=== PATIENT | female | born 1965 | race Caucasian/White ===

== ENCOUNTER 2018-07-17 13:45 | Inpatient (IN) | payer SELFPAY ==
[~2018-07-17] VITALS: Ht 170.2 cm; Wt 73.5 kg
[~2018-07-17 13:45] MED LIST: HALDOL; SERT50TA14; TRILEPTAL; ZYPREXA
[2018-07-17] MEDS ORDERED: IV NORMAL SALINE 1000 ML BAG IV ONE (14:00)
--- NOTE | 2018-07-17 14:00 | NUR ---
called poison control for consult. pt care would be supportive, security monitor and clos e observation for 6 hrs, longer if sympthomatic, watch for tachycardia, drowsiness, and q-t elongation on monitor.md notified. called treating and pumping supervisor for one to one sitter.
--- NOTE | 2018-07-17 14:20 | NUR ---
apple juice provided for pt. per md gambino
--- NOTE | 2018-07-17 14:23 | NUR ---
nathanael lucas, pt brother called and provided his contact info.[phone]. also pt older brother,jaxon lucas [phone]. pt was notified about her brother calling and pt consented that the brother to be updated about pt condition, including lab and images result, if he calls.
[2018-07-17 14:28] LABS: BASOPHILS % (AUTO) 0.7 % (0.0-2.0); EOSINOPHILS # (AUTO) 0.1 K/uL (0.0-0.7); EOSINOPHILS % (AUTO) 0.9 % (0.0-7.0); HEMATOCRIT 47.1 % (31.2-41.9); LYMPHOCYTES # (AUTO) 1.7 K/uL (20.0-40.0); LYMPHOCYTES % (AUTO) 26.2 % (20.5-51.5); MEAN CORPUSCULAR HEMOGLOBIN 33.5 uug (24.7-32.8); MEAN CORPUSCULAR HGB CONC 34 g/dL (32.3-35.6); MEAN CORPUSCULAR VOLUME 98.3 fL (75.5-95.3); MONOCYTES # (AUTO) 0.6 K/uL (2.0-10.0); MONOCYTES % (AUTO) 9.7 % (0.0-11.0); NEUTROPHILS % (AUTO) 62.5 % (38.5-71.5); PLATELET COUNT (AUTO) 254 K/uL (179-408); RED BLOOD CELL COUNT(AUTO) 4.79 MIL/uL (3.63-4.92); WHITE BLOOD COUNT (AUTO) 6.4 K/uL (3.8-11.8)
[2018-07-17 14:39] LABS: CARBON DIOXIDE 21 mmol/L (21-32); CHLORIDE 102 mmol/L (98-107); GLUCOSE 69 mg/dL (74-106); POTASSIUM 3.3 mmol/L (3.5-5.1); UREA NITROGEN, BLOOD 9 mg/dL (7-18)
[2018-07-17 14:44] LABS: ALANINE AMINOTRANSFERASE 18 U/L (14-59); ALKALINE PHOSPHATASE 86 U/L (50-136); ASPARTATE AMINOTRANSFERASE 6 U/L (15-37); BILIRUBIN,DIRECT 0.1 mg/dL (0.0-0.2); BILIRUBIN,TOTAL 0.2 mg/dL (0.2-1.0); TOTAL PROTEIN, SERUM 8.1 g/dL (6.4-8.2)
[2018-07-17 14:45] LABS: ETHANOL 96 MG/DL (0-0)
--- NOTE | 2018-07-17 14:45 | NUR ---
pt awake, calm, deneis any pain or distress at this time. vss.
--- NOTE | 2018-07-17 15:08 | NUR ---
pt voided 800 ml in the bedside commode.urine sent
[2018-07-17 15:22] LABS: *BILIRUBIN,URIN NEGATIVE (NEGATIVE); *BLOOD, URINE 1+ (NEGATIVE); *CLARITY,URINE CLEAR (CLEAR); *COLOR,URINE YELLOW (YELLOW); *KETONES,URINE NEGATIVE (NEGATIVE); *UROBILINOGEN,URINE 0.2 E.U./dl (NORMAL); LEUKOCYTE ESTERASE ,URINE NEGATIVE (NEGATIVE); NITRITE, URINE NEGATIVE (NEGATIVE); PH,URINE 5.5 (5.0-8.0); UGLUCOSE NEGATIVE (NEGATIVE)
--- NOTE | 2018-07-17 15:30 | NUR ---
abbe at bedside for onr to one sitter.
[2018-07-17 15:34] LABS: *AMPHETAMINE, URINE NEGATIVE (NEGATIVE); *BARBITURATE, URINE NEGATIVE (NEGATIVE); *CANNABINOID, URINE NEGATIVE (NEGATIVE); *COCCAINE, URINE NEGATIVE (NEGATIVE); *OPIATE, URINE NEGATIVE (NEGATIVE); *PHENCYCLIDINE SCREEN,URINE NEGATIVE (NEGATIVE)
--- NOTE | 2018-07-17 16:59 | NUR ---
pt awake and calm, pt tho ny pain or distress at this time.
[2018-07-17] MEDS ORDERED: ZIPR20CA2 PO (17:20)
--- NOTE | 2018-07-17 17:30 | NUR ---
HOSPITAL TRAY OFFERED TO PT. PT REFUSED, REQUESTED ONLY APPLE JUICE, PROVIDED.
--- NOTE | 2018-07-17 17:53 | NUR ---
PT RESTING AROUSABLE. PT MEDICALLY CLEARED.
[2018-07-17 18:20] LABS: BACTERIA,URINE FEW /HPF (NONE SEEN); SQUAMOUS EPITHELIAL CELL,UR FEW /HPF (NONE SEEN); WBC,URINE 0-3 /HPF (0-3)
--- NOTE | 2018-07-17 18:31 | NUR ---
CURTIS MALDONADO AT BEDSIDE FOR PSYCH EVAL.
[2018-07-17 18:37] LABS: CREATINE KINASE, TOTAL 39 U/L (26-192)
--- NOTE | 2018-07-17 19:05 | NUR ---
ASSUMED CARE OF PATIENT. PENDING PSYCH EVAL. NO ACUTE DISTRESS NOTED
[2018-07-17 19:32] LABS: ACETAMINOPHEN < 2.0 ug/mL (10-30)
--- NOTE | 2018-07-17 20:32 | NUR ---
PANEL CALL PLACED AT THIS TIME. PENDING CALL BACK FROM DR LUGO
[2018-07-17] MEDS ORDERED: IBUPROFEN 400 MG TABLET ONE (20:40)
[2018-07-17] MEDS ORDERED: IBUPROFEN 400 MG TABLET PO ONE (20:45)
--- NOTE | 2018-07-17 20:58 | NUR ---
XRAY AT BEDSIDE. PATIENT GIVEN JUICE/FOOD AT THIS TIME.
--- NOTE | 2018-07-17 21:04 | NUR ---
Pt. admitted to tELE , under care of Belongs List completed
--- NOTE | 2018-07-17 21:06 | NUR ---
REPORT GIVEN TO JOHN CHEW ON TELEMETRY
--- NOTE | 2018-07-17 21:30 | NUR ---
Received patient awake, alert and oriented x 4. Patient is not in any form of distress. Transferred patient safely from [facility] to [facility] bed, noted patient has a sitter at bedside due to history of suicidal ideation. She is on room air and has an IV access on her right antecubital vein,20G to saline lock. No complaints at the moment but wishes to speak to a family member. Patient oriented to unit and made comfortable.Bed in low position, locked, side rails up for safety. Will continue to monitor.
--- NOTE | 2018-07-17 22:00 | NUR ---
Received a call from Nga from Poison Control who asked for a repeat check of patient's salicylate level and chemistry. Contacted admitting physician, Dr. Peguero regarding Poison Control's call and orders.
[2018-07-17 22:13] VITALS: BP 97/63
[2018-07-17] MEDS ORDERED: MAGNESIUM HYDROXIDE 30 ML LIQUID UDC PO PRN (23:30)
[2018-07-17] MEDS ORDERED: LORAZEPAM 2 MG/1 ML VIAL IV PRN (23:30)
[2018-07-17] MEDS ORDERED: ONDANSETRON 4 MG/2 ML VIAL IV PRN (23:30)
[2018-07-17] MEDS ORDERED: ACETAMINOPHEN 325 MG TABLET PO PRN (23:30)
[2018-07-17] MEDS: POTASSIUM CHLORIDE 20 MEQ in IV NS 1000 ML 1,000 ML IV PRN (23:59)
[2018-07-18 00:08] LABS: BILIRUBIN,TOTAL 0.4 mg/dL (0.2-1.0); CREATININE 0.8 mg/dL (0.6-1.3); POTASSIUM 4.3 mmol/L (3.5-5.1); TOTAL PROTEIN, SERUM 6.4 g/dL (6.4-8.2)
[2018-07-18 00:18] VITALS: BP 103/69
[2018-07-18 05:29] VITALS: BP 105/63
--- NOTE | 2018-07-18 05:54 | NUR ---
Patient slept well throughout the night. Not in any form of distress. No complaints made. Still with sitter at bedside for safety. Noted with blood draw again this morning with Salicylate and acetaminophen levels as ordered and requested by poison control. No other untoward events noted.
[2018-07-18 06:36] LABS: BASOPHILS % (AUTO) 0.8 % (0.0-2.0); EOSINOPHILS # (AUTO) 0.1 K/uL (0.0-0.7); EOSINOPHILS % (AUTO) 2.2 % (0.0-7.0); HEMATOCRIT 40.6 % (31.2-41.9); HEMOGLOBIN 13.7 g/dL (10.9-14.3); LYMPHOCYTES % (AUTO) 32.4 % (20.5-51.5); MEAN CORPUSCULAR HEMOGLOBIN 33.3 uug (24.7-32.8); MEAN CORPUSCULAR HGB CONC 34 g/dL (32.3-35.6); MEAN CORPUSCULAR VOLUME 98.5 fL (75.5-95.3); MONOCYTES # (AUTO) 0.6 K/uL (2.0-10.0); MONOCYTES % (AUTO) 9.8 % (0.0-11.0); NEUTROPHILS # (AUTO) 3.4 K/uL (1.8-8.9); NEUTROPHILS % (AUTO) 54.8 % (38.5-71.5); PLATELET COUNT (AUTO) 236 K/uL (179-408); RED BLOOD CELL COUNT(AUTO) 4.12 MIL/uL (3.63-4.92); WHITE BLOOD COUNT (AUTO) 6.3 K/uL (3.8-11.8)
[2018-07-18] MEDS ORDERED: PANTOPRAZOLE SODIUM 40 MG TABLET.DR PO SCH (07:00)
[2018-07-18 07:01] LABS: THYROID STIMULATING HORMONE 1.003 mIU/mL (0.358-3.740)
[2018-07-18 07:24] LABS: ALANINE AMINOTRANSFERASE 19 U/L (14-59); ALKALINE PHOSPHATASE 70 U/L (50-136); ASPARTATE AMINOTRANSFERASE 8 U/L (15-37); BILIRUBIN,TOTAL 0.3 mg/dL (0.2-1.0); CARBON DIOXIDE 23 mmol/L (21-32); CHLORIDE 109 mmol/L (98-107); CREATININE 0.9 mg/dL (0.6-1.3); GLUCOSE 84 mg/dL (74-106); MAGNESIUM 2.2 mg/dL (1.8-2.4); PHOSPHOROUS 2.5 mg/dL (2.5-4.9); POTASSIUM 4.2 mmol/L (3.5-5.1); TOTAL PROTEIN, SERUM 6.4 g/dL (6.4-8.2); UREA NITROGEN, BLOOD 7 mg/dL (7-18)
[2018-07-18 07:56] LABS: ACETAMINOPHEN < 2.0 ug/mL (10-30)
[2018-07-18 09:59] VITALS: BP 116/74
[2018-07-18] MEDS: POTASSIUM CHLORIDE 20 MEQ in IV NS 1000 ML 1,000 ML IV PRN (12:07)
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
--- NOTE | 2018-07-18 17:14 | NUR ---
PATIENT IS MEDICALLY CLEARED, CLEARED BY PSYCHIATRY, EDUCATION IS GIVEN FOR MY DISCHARGE WITH HARD COPY PROVIDED TO THE PATIENT PATIENT IS GETTING PICKED UP BY AND HER DAUGHTER
[2018-07-18 17:53] VITALS: BP 120/81
--- NOTE | 2018-07-18 18:07 | NUR ---
PATIENT LEFT THE UNIT WITH AND HER DAUGHTER VS STABLE NO DISTRESS, NO THOUGHTS OF SUICIDE OR PLAN
== END 2018-07-18 18:08 | disposition home or self-care (01) | DRG 918 ==
LOC: ER 13:45 → TELE3 21:19
PROVIDERS: ADMIT Internal Medicine
DX: T43.592A Poisoning by other antipsychotics and neuroleptics, intentional self-harm, initial encounter (principal); F31.60 Bipolar disorder, current episode mixed, unspecified; T51.0X2A Toxic effect of ethanol, intentional self-harm, initial encounter; Y92.012 Bathroom of single-family (private) house as the place of occurrence of the external cause; W18.2XXA Fall in (into) shower or empty bathtub, initial encounter; M47.812 Spondylosis without myelopathy or radiculopathy, cervical region; Y90.4 Blood alcohol level of 80-99 mg/100 ml; E87.6 Hypokalemia; M25.78 Osteophyte, vertebrae; M12.88 Other specific arthropathies, not elsewhere classified, other specified site; Z86.59 Personal history of other mental and behavioral disorders; F25.9 Schizoaffective disorder, unspecified; F10.10 Alcohol abuse, uncomplicated
CPT/HCPCS: 36415; 70450; 71045; 72125; 80307; 83735; 84100; 84443; 85025; 85730; 93005; A4663; G0378; G0480; G0480-TC; J3480; J7030

== ENCOUNTER 2019-08-21 14:47 | Emergency (ER) | payer BC ==
[~2019-08-21] VITALS: Ht 170.2 cm; Wt 62.6 kg
[~2019-08-21 14:47] MED LIST changes: -HALDOL; -SERT50TA14; -TRILEPTAL; +ZIPR20CA2 PO; -ZYPREXA
[2019-08-21] MEDS ORDERED: TDAP DIPH,PERTUSS,TET VAC/PF 0.5 ML DISP.SYRIN IM ONE ×2 (15:00→15:18)
[2019-08-21] MEDS ORDERED: NEOMY/BACITRA/POLYMYXIN B OINT UD PACKET TP ONE ×3 (15:00→17:26)
[2019-08-21] MEDS ORDERED: LURA80TA PO (15:02)
[2019-08-21] MEDS ORDERED: LAMO100T2 PO (15:02)
[2019-08-21] MEDS ORDERED: LITH300T3 PO (15:02)
[2019-08-21] MEDS ORDERED: SODIUM BICARBONATE 4.2 % (NEUT) 5 ML VIAL TP ONE (16:15)
[2019-08-21] MEDS ORDERED: LIDOCAINE HCL 2% 20 ML VIAL TP ONE (16:15)
--- NOTE | 2019-08-21 17:30 | NUR ---
Patient discharged to home in stable condition. Written and verbal after care instructions given. Patient verbalizes understanding of instructions. Stressed follow up or return to ER for worsening s/s.pt walks in steady gait. pt used uber to go home.
[2019-08-21 18:53] VITALS: BP 119/71
== END 2019-08-21 17:30 | disposition home or self-care (01) ==
LOC: ER 14:48
DX: S01.112A Laceration without foreign body of left eyelid and periocular area, initial encounter (principal); V48.4XXA Person boarding or alighting a car injured in noncollision transport accident, initial encounter; Y92.410 Unspecified street and highway as the place of occurrence of the external cause; F25.9 Schizoaffective disorder, unspecified; Z79.899 Other long term (current) drug therapy
CPT/HCPCS: 12013; 90471; 90715; 99283; J3490 ×2; A4217; A4663

== ENCOUNTER 2019-09-04 08:26 | Emergency (ER) | payer BC ==
[~2019-09-04] VITALS: Ht 170.2 cm; Wt 63.5 kg
[~2019-09-04 08:26] MED LIST changes: +LAMO100T2 PO; +LITH300T3 PO; +LURA80TA PO; -ZIPR20CA2 PO
--- NOTE | 2019-09-04 08:45 | NUR ---
PATIENT WAS SEEN BY MD FOR SUTURE REMOVAL. DC AND FOLLOW UP INSTRUCTIONS GIVEN ADN EXPLAINED TO PATIENT BY ...
== END 2019-09-04 08:47 | disposition home or self-care (01) ==
LOC: ER 08:26
DX: S01.112D Laceration without foreign body of left eyelid and periocular area, subsequent encounter (principal); W01.0XXD Fall on same level from slipping, tripping and stumbling without subsequent striking against object, subsequent encounter
CPT/HCPCS: A4663

== ENCOUNTER 2020-04-11 08:37 | Emergency (ER) | payer BC ==
[~2020-04-11] VITALS: Ht 170.2 cm; Wt 54.4 kg
--- NOTE | 2020-04-11 09:12 | NUR ---
Pt c/o pain "up underneath" the right ribcage for days, 8-12/05, does not remember lifting anything, twisting, etc. Pt denies CP, SOB, dizziness, n/v, no other complaints, no distress noted.
[2020-04-11 09:47] LABS: *BILIRUBIN,URIN NEGATIVE (NEGATIVE); *CLARITY,URINE CLEAR (CLEAR); *COLOR,URINE YELLOW (YELLOW); *KETONES,URINE NEGATIVE (NEGATIVE); *UROBILINOGEN,URINE 0.2 E.U./dl (NORMAL); LEUKOCYTE ESTERASE ,URINE TRACE (NEGATIVE); NITRITE, URINE NEGATIVE (NEGATIVE); UGLUCOSE NEGATIVE (NEGATIVE)
[2020-04-11 09:52] LABS: *URINE HCG, QUAL NEG (NEGATIVE)
[2020-04-11 09:54] LABS: CREATININE 0.9 mg/dL (0.6-1.3); POTASSIUM 4.7 mmol/L (3.5-5.1)
[2020-04-11 09:55] LABS: BASOPHILS # (AUTO) 0.1 K/uL (0.0-8.0); BASOPHILS % (AUTO) 1.4 % (0.0-2.0); EOSINOPHILS # (AUTO) 0.2 K/uL (0.0-0.7); EOSINOPHILS % (AUTO) 2.9 % (0.0-7.0); HEMOGLOBIN 14.4 g/dL (10.9-14.3); LYMPHOCYTES # (AUTO) 1.6 K/uL (20.0-40.0); LYMPHOCYTES % (AUTO) 29.2 % (20.5-51.5); MEAN CORPUSCULAR HEMOGLOBIN 32.3 uug (24.7-32.8); MEAN CORPUSCULAR HGB CONC 33 g/dL (32.3-35.6); MEAN CORPUSCULAR VOLUME 98.6 fL (75.5-95.3); MONOCYTES # (AUTO) 0.6 K/uL (2.0-10.0); MONOCYTES % (AUTO) 10.2 % (0.0-11.0); NEUTROPHILS # (AUTO) 3.1 K/uL (1.8-8.9); NEUTROPHILS % (AUTO) 56.3 % (38.5-71.5); PLATELET COUNT (AUTO) 241 K/uL (179-408); RED BLOOD CELL COUNT(AUTO) 4.46 MIL/uL (3.63-4.92); WHITE BLOOD COUNT (AUTO) 5.5 K/uL (3.8-11.8)
[2020-04-11 09:56] LABS: *BLOOD, URINE TRACE (NEGATIVE)
[2020-04-11 10:00] LABS: BILIRUBIN,DIRECT 0.1 mg/dL (0.0-0.2); BILIRUBIN,TOTAL 0.3 mg/dL (0.2-1.0); TOTAL PROTEIN, SERUM 7.3 g/dL (6.4-8.2)
[2020-04-11] MEDS ORDERED: SWABABLE VALVE TRANSFER SET EA MC ONE ×2 (10:09→11:30)
[2020-04-11] MEDS ORDERED: IV NORMAL SALINE 250 ML IV ONE (10:09)
[2020-04-11] MEDS ORDERED: IOHEXOL 300MG/ML 100 ML INFUS..BTL ONE ×2 (10:09→11:29)
--- NOTE | 2020-04-11 11:41 | NUR ---
Taken to CT
--- NOTE | 2020-04-11 12:55 | NUR ---
IV removed. Catheter intact and site benign. Pressure and 4x4 gauze applied to site. No bleeding noted.
--- NOTE | 2020-04-11 12:58 | NUR ---
Patient discharged to home in stable condition. Written and verbal after care instructions given. Patient verbalizes understanding of instructions. Stressed follow up or return to ER for worsening s/s.
[2020-04-11 17:20] LABS: BACTERIA,URINE NONE SEEN /HPF (NONE SEEN); RBC,URINE 0-3 /HPF (0-3); SQUAMOUS EPITHELIAL CELL,UR FEW /HPF (NONE SEEN)
== END 2020-04-11 12:59 | disposition home or self-care (01) ==
LOC: ER 08:39
DX: R10.11 Right upper quadrant pain (principal); S23.41XA Sprain of ribs, initial encounter; X58.XXXA Exposure to other specified factors, initial encounter; Y99.8 Other external cause status; Z71.6 Tobacco abuse counseling; R00.1 Bradycardia, unspecified; F25.0 Schizoaffective disorder, bipolar type; Z79.899 Other long term (current) drug therapy; Z72.0 Tobacco use
CPT/HCPCS: 36415; 71046; 74160; 74177; 76705; 80048; 80076; 80178; 81001; 83690; 84484; 84703; 85025; 93005; 99285; Q9967 ×2; 70030-TC; A4663; J7050

== ENCOUNTER 2020-05-06 22:40 | Emergency (ER) | payer BC ==
[~2020-05-06] VITALS: Ht 170.2 cm; Wt 61.2 kg
[2020-05-06] MEDS ORDERED: FLUO40CA8 PO (22:49)
[2020-05-06] MEDS ORDERED: OLANZAPINE 5 MG TABLET PO ONE (23:00)
[2020-05-06] MEDS ORDERED: OLANZAPINE 5 MG TABLET ONE (23:11)
[2020-05-06 23:16] LABS: BASOPHILS # (AUTO) 0.1 K/uL (0.0-8.0); BASOPHILS % (AUTO) 0.7 % (0.0-2.0); EOSINOPHILS # (AUTO) 0.3 K/uL (0.0-0.7); EOSINOPHILS % (AUTO) 3.4 % (0.0-7.0); HEMATOCRIT 45.5 % (31.2-41.9); HEMOGLOBIN 15.2 g/dL (10.9-14.3); LYMPHOCYTES # (AUTO) 3.4 K/uL (20.0-40.0); LYMPHOCYTES % (AUTO) 36.9 % (20.5-51.5); MEAN CORPUSCULAR HEMOGLOBIN 32.9 uug (24.7-32.8); MEAN CORPUSCULAR HGB CONC 33 g/dL (32.3-35.6); MEAN CORPUSCULAR VOLUME 98.6 fL (75.5-95.3); MONOCYTES # (AUTO) 0.9 K/uL (2.0-10.0); MONOCYTES % (AUTO) 9.2 % (0.0-11.0); NEUTROPHILS # (AUTO) 4.6 K/uL (1.8-8.9); NEUTROPHILS % (AUTO) 49.8 % (38.5-71.5); PLATELET COUNT (AUTO) 284 K/uL (179-408); RED BLOOD CELL COUNT(AUTO) 4.62 MIL/uL (3.63-4.92); WHITE BLOOD COUNT (AUTO) 9.3 K/uL (3.8-11.8)
[2020-05-06 23:19] LABS: *BILIRUBIN,URIN NEGATIVE (NEGATIVE); *CLARITY,URINE CLEAR (CLEAR); *COLOR,URINE YELLOW (YELLOW); *KETONES,URINE NEGATIVE (NEGATIVE); *UROBILINOGEN,URINE 0.2 E.U./dl (NORMAL); LEUKOCYTE ESTERASE ,URINE 1+ (NEGATIVE); NITRITE, URINE NEGATIVE (NEGATIVE); UGLUCOSE NEGATIVE (NEGATIVE)
[2020-05-06 23:20] LABS: *BLOOD, URINE TRACE (NEGATIVE)
[2020-05-06 23:21] LABS: CARBON DIOXIDE 31 mmol/L (21-32); CHLORIDE 102 mmol/L (98-107); GLUCOSE 79 mg/dL (74-106); POTASSIUM 3.5 mmol/L (3.5-5.1); UREA NITROGEN, BLOOD 14 mg/dL (7-18)
[2020-05-06 23:22] LABS: *URINE HCG, QUAL NEGATIVE (NEGATIVE)
[2020-05-06 23:26] LABS: BACTERIA,URINE FEW /HPF (NONE SEEN); RBC,URINE 0-3 /HPF (0-3); SQUAMOUS EPITHELIAL CELL,UR FEW /HPF (NONE SEEN); URINE AMORPHOUS URATE FEW /HPF
[2020-05-06 23:28] LABS: ETHANOL < 3 MG/DL (0-0)
[2020-05-06 23:30] LABS: *AMPHETAMINE, URINE NEGATIVE (NEGATIVE); *CANNABINOID, URINE NEGATIVE (NEGATIVE); *COCCAINE, URINE NEGATIVE (NEGATIVE); *OPIATE, URINE NEGATIVE (NEGATIVE); *PHENCYCLIDINE SCREEN,URINE NEGATIVE (NEGATIVE)
[2020-05-06 23:37] LABS: ACETAMINOPHEN < 2.0 ug/mL (10-30); ALANINE AMINOTRANSFERASE 20 U/L (14-59); ALKALINE PHOSPHATASE 73 U/L (50-136); ASPARTATE AMINOTRANSFERASE 12 U/L (15-37); BILIRUBIN,DIRECT 0.1 mg/dL (0.0-0.2); BILIRUBIN,TOTAL 0.2 mg/dL (0.2-1.0); TOTAL PROTEIN, SERUM 7.4 g/dL (6.4-8.2)
--- NOTE | 2020-05-06 23:45 | NUR ---
PATIENT IN ROOM WATCHING TV WITH NO DISTRESS NOTED.
[2020-05-06] MEDS ORDERED: diphenhydrAMINE 50 MG CAPSULE ONE (23:59)
[2020-05-07] MEDS ORDERED: diphenhydrAMINE 50 MG CAPSULE PO ONE
--- NOTE | 2020-05-07 00:34 | NUR ---
Tad Hoffmann from [employer] here to eval patient.
[2020-05-07] MEDS ORDERED: LORA-259 PO (00:55)
[2020-05-07 01:03] VITALS: BP 118/80
== END 2020-05-07 01:03 | disposition home or self-care (01) ==
LOC: ER 22:48
DX: F25.9 Schizoaffective disorder, unspecified (principal); Z20.822 Contact with and (suspected) exposure to COVID-19; Z79.899 Other long term (current) drug therapy; F41.9 Anxiety disorder, unspecified
CPT/HCPCS: 36415; 80048; 80076; 80299; 80307; 80320; 81001; 84703; 85025; 87086; 87426; 99285; Q0163; A4663; G0480

== ENCOUNTER 2020-05-18 17:43 | Emergency (ER) | payer BC ==
[~2020-05-18] VITALS: Ht 170.2 cm; Wt 59.0 kg
[~2020-05-18 17:43] MED LIST changes: +FLUO40CA8 PO; +LORA-259 PO
[2020-05-18 18:18] LABS: *BILIRUBIN,URIN NEGATIVE (NEGATIVE); *COLOR,URINE LIGHT YELLOW (YELLOW); *KETONES,URINE NEGATIVE (NEGATIVE); *UROBILINOGEN,URINE 0.2 E.U./dl (NORMAL); LEUKOCYTE ESTERASE ,URINE 2+ (NEGATIVE); NITRITE, URINE NEGATIVE (NEGATIVE); UGLUCOSE NEGATIVE (NEGATIVE)
[2020-05-18 18:20] LABS: *BLOOD, URINE TRACE (NEGATIVE)
[2020-05-18 18:27] LABS: *CLARITY,URINE HAZY (CLEAR); BACTERIA,URINE FEW /HPF (NONE SEEN); RBC,URINE 0-3 /HPF (0-3); SQUAMOUS EPITHELIAL CELL,UR FEW /HPF (NONE SEEN); WBC,URINE 20-50 /HPF (0-3)
[2020-05-18 18:29] LABS: BASOPHILS % (AUTO) 0.7 % (0.0-2.0); CARBON DIOXIDE 27 mmol/L (21-32); CHLORIDE 103 mmol/L (98-107); CREATININE 0.9 mg/dL (0.6-1.3); EOSINOPHILS # (AUTO) 0.2 K/uL (0.0-0.7); EOSINOPHILS % (AUTO) 3.4 % (0.0-7.0); GLUCOSE 86 mg/dL (74-106); HEMATOCRIT 42.1 % (31.2-41.9); HEMOGLOBIN 14.1 g/dL (10.9-14.3); LYMPHOCYTES # (AUTO) 2.6 K/uL (20.0-40.0); LYMPHOCYTES % (AUTO) 37.1 % (20.5-51.5); MEAN CORPUSCULAR HEMOGLOBIN 32.6 uug (24.7-32.8); MEAN CORPUSCULAR HGB CONC 33 g/dL (32.3-35.6); MEAN CORPUSCULAR VOLUME 97.6 fL (75.5-95.3); MONOCYTES # (AUTO) 0.7 K/uL (2.0-10.0); MONOCYTES % (AUTO) 9.3 % (0.0-11.0); NEUTROPHILS # (AUTO) 3.5 K/uL (1.8-8.9); NEUTROPHILS % (AUTO) 49.5 % (38.5-71.5); PLATELET COUNT (AUTO) 253 K/uL (179-408); POTASSIUM 3.5 mmol/L (3.5-5.1); RED BLOOD CELL COUNT(AUTO) 4.31 MIL/uL (3.63-4.92); UREA NITROGEN, BLOOD 13 mg/dL (7-18); WHITE BLOOD COUNT (AUTO) 7.1 K/uL (3.8-11.8)
[2020-05-18 18:31] LABS: ETHANOL < 3 MG/DL (0-0)
[2020-05-18 18:31] LABS: *AMPHETAMINE, URINE NEGATIVE (NEGATIVE); *CANNABINOID, URINE NEGATIVE (NEGATIVE); *COCCAINE, URINE NEGATIVE (NEGATIVE); *OPIATE, URINE NEGATIVE (NEGATIVE); *PHENCYCLIDINE SCREEN,URINE NEGATIVE (NEGATIVE)
[2020-05-18 18:35] LABS: ACETAMINOPHEN < 2.0 ug/mL (10-30); ALANINE AMINOTRANSFERASE 23 U/L (14-59); ALKALINE PHOSPHATASE 68 U/L (50-136); ASPARTATE AMINOTRANSFERASE 12 U/L (15-37); BILIRUBIN,DIRECT 0.1 mg/dL (0.0-0.2); BILIRUBIN,TOTAL 0.2 mg/dL (0.2-1.0); TOTAL PROTEIN, SERUM 7.1 g/dL (6.4-8.2)
--- NOTE | 2020-05-18 19:04 | NUR ---
Called Darlene López RN PET for patient psych evaluation. Left message.
[2020-05-18] MEDS ORDERED: CEphaleXIN 500 MG CAPSULE ONE (19:12)
[2020-05-18] MEDS ORDERED: CEphaleXIN 500 MG CAPSULE PO ONE (19:15)
--- NOTE | 2020-05-18 19:23 | NUR ---
Received call back from Darlene CHEW PET, eta 30min.
--- NOTE | 2020-05-18 20:05 | NUR ---
Darlene López RN PET arrived to ER for patient psych evaluation.
[2020-05-18] MEDS ORDERED: LORAZEPAM 0.5 MG TABLET PO ONE (20:30)
[2020-05-18] MEDS ORDERED: LORAZEPAM 1 MG TABLET ONE (20:38)
[2020-05-18] MEDS ORDERED: CEPH500C2 PO (20:40)
[2020-05-18] MEDS ORDERED: LORA-259 PO (20:40)
--- NOTE | 2020-05-18 20:48 | NUR ---
Patient discharged to home in stable condition. Written and verbal after care instructions given. Patient verbalizes understanding of instructions. Stressed follow up or return to ER for worsening s/s. Patient out of ER with steady gait, no acute signs of distress, VSS, all belongings taken, provided with copies of lab and CT results.
[2020-05-18 20:49] VITALS: BP 145/85
== END 2020-05-18 20:50 | disposition home or self-care (01) ==
LOC: ER 17:45
DX: F41.9 Anxiety disorder, unspecified (principal); R51.9 Headache, unspecified; N39.0 Urinary tract infection, site not specified; Z20.822 Contact with and (suspected) exposure to COVID-19; Z83.3 Family history of diabetes mellitus; Z82.49 Family history of ischemic heart disease and other diseases of the circulatory system; F25.0 Schizoaffective disorder, bipolar type; M54.12 Radiculopathy, cervical region; Z79.899 Other long term (current) drug therapy; F10.20 Alcohol dependence, uncomplicated; Y90.0 Blood alcohol level of less than 20 mg/100 ml
CPT/HCPCS: 36415; 70030-TC; 70450; 85025; 87086; A4663; G0480

== ENCOUNTER 2020-08-10 19:55 | Emergency (ER) | payer BC ==
[~2020-08-10] VITALS: Ht 170.2 cm; Wt 54.4 kg
[~2020-08-10 19:55] MED LIST changes: +CEPH500C2 PO
--- NOTE | 2020-08-10 20:20 | NUR ---
[employer] at bedside interviewing patient.
[2020-08-10] MEDS ORDERED: FOLIC ACID/VITAMIN B COMP W-C TABLET PO STA (20:24)
--- NOTE | 2020-08-10 20:29 | NUR ---
Pt out of ER for CT.
[2020-08-10] MEDS ORDERED: IV NORMAL SALINE 100 ML BAG IV ONE (20:30)
[2020-08-10] MEDS ORDERED: THIAMINE HCL 200 MG/2 ML VIAL IV ONE (20:30)
[2020-08-10 20:32] LABS: BASOPHILS # (AUTO) 0.1 K/uL (0.0-8.0); BASOPHILS % (AUTO) 0.8 % (0.0-2.0); CARBON DIOXIDE 25 mmol/L (21-32); CHLORIDE 94 mmol/L (98-107); CREATININE 0.8 mg/dL (0.6-1.3); EOSINOPHILS # (AUTO) 0.2 K/uL (0.0-0.7); EOSINOPHILS % (AUTO) 2.7 % (0.0-7.0); GLUCOSE 108 mg/dL (74-106); HEMATOCRIT 40.5 % (31.2-41.9); HEMOGLOBIN 14.1 g/dL (10.9-14.3); LYMPHOCYTES # (AUTO) 2.8 K/uL (20.0-40.0); LYMPHOCYTES % (AUTO) 32.1 % (20.5-51.5); MEAN CORPUSCULAR HEMOGLOBIN 33.3 uug (24.7-32.8); MEAN CORPUSCULAR HGB CONC 35 g/dL (32.3-35.6); MEAN CORPUSCULAR VOLUME 96.1 fL (75.5-95.3); MONOCYTES # (AUTO) 0.7 K/uL (2.0-10.0); MONOCYTES % (AUTO) 7.5 % (0.0-11.0); NEUTROPHILS % (AUTO) 56.9 % (38.5-71.5); PLATELET COUNT (AUTO) 268 K/uL (179-408); POTASSIUM 3.3 mmol/L (3.5-5.1); RED BLOOD CELL COUNT(AUTO) 4.22 MIL/uL (3.63-4.92); UREA NITROGEN, BLOOD 7 mg/dL (7-18); WHITE BLOOD COUNT (AUTO) 8.8 K/uL (3.8-11.8)
[2020-08-10 20:34] LABS: ETHANOL < 3 MG/DL (0-0)
[2020-08-10 20:37] LABS: ALANINE AMINOTRANSFERASE 16 U/L (14-59); ALKALINE PHOSPHATASE 90 U/L (50-136); ASPARTATE AMINOTRANSFERASE 14 U/L (15-37); BILIRUBIN,DIRECT 0.1 mg/dL (0.0-0.2); BILIRUBIN,TOTAL 0.1 mg/dL (0.2-1.0); TOTAL PROTEIN, SERUM 6.6 g/dL (6.4-8.2)
[2020-08-10 20:39] LABS: ACETAMINOPHEN < 2.0 ug/mL (10-30)
--- NOTE | 2020-08-10 20:42 | NUR ---
Patient returned from CT scan.
[2020-08-10 20:45] LABS: THYROID STIMULATING HORMONE 1.074 mIU/mL (0.358-3.740)
--- NOTE | 2020-08-10 20:49 | NUR ---
Per Officer Keshav najera #[id number]; unit 10X18 states the patient will be placed as an unbooked DUI arrest.
--- NOTE | 2020-08-10 21:00 | NUR ---
Patient is sleeping on bed, eyes closed. No acute distress noted.
[2020-08-10] MEDS ORDERED: THIAMINE HCL 200 MG/2 ML VIAL ONE (21:09)
[2020-08-10] MEDS ORDERED: FOLIC ACID/VITAMIN B COMP W-C TABLET ONE (21:24)
--- NOTE | 2020-08-10 21:34 | NUR ---
ROMAN returned to room to interview patient some more.
[2020-08-10 22:03] LABS: *BILIRUBIN,URIN NEGATIVE (NEGATIVE); *CLARITY,URINE CLEAR (CLEAR); *COLOR,URINE LIGHT YELLOW (YELLOW); *KETONES,URINE NEGATIVE (NEGATIVE); *UROBILINOGEN,URINE 0.2 E.U./dl (NORMAL); LEUKOCYTE ESTERASE ,URINE NEGATIVE (NEGATIVE); NITRITE, URINE NEGATIVE (NEGATIVE); UGLUCOSE NEGATIVE (NEGATIVE)
[2020-08-10 22:05] LABS: *BLOOD, URINE NEGATIVE (NEGATIVE)
[2020-08-10 22:17] LABS: *AMPHETAMINE, URINE NEGATIVE (NEGATIVE); *CANNABINOID, URINE NEGATIVE (NEGATIVE); *COCCAINE, URINE NEGATIVE (NEGATIVE); *OPIATE, URINE NEGATIVE (NEGATIVE); *PHENCYCLIDINE SCREEN,URINE NEGATIVE (NEGATIVE)
--- NOTE | 2020-08-10 23:00 | NUR ---
1L IV Normal Saline infusion concluded.
--- NOTE | 2020-08-10 23:20 | NUR ---
Patient resting in room, looking at environment. [employer] at bedside. No acute distress noted.
--- NOTE | 2020-08-10 23:30 | NUR ---
Teagan copeland in [facility] - 08/10/20 at 2331 by MACIEL Patient moved around stated she accidentally pulled out her IV line. MD Sharif made aware.
--- NOTE | 2020-08-10 23:30 | NUR ---
Patient moved around stated she accidentally pulled out her IV line. Area was cleaned, bandaged with a gauze, and secured with tape. MD Sharif made aware.
--- NOTE | 2020-08-10 23:58 | NUR ---
[employer] store associate at bedside to draw blood from patient.
[2020-08-11 00:13] VITALS: BP 114/72
--- NOTE | 2020-08-11 00:13 | NUR ---
Patient discharged to home in stable condition. Written and verbal after care instructions given. Patient verbalizes understanding of instructions. Stressed follow up or return to ER for worsening s/s. Patient ambulates with steady gait, V/S stable, left with all personal belongings, advised to not drive, and left via taxi.
== END 2020-08-11 00:13 | disposition home or self-care (01) ==
LOC: ER 19:55
DX: Z04.1 Encounter for examination and observation following transport accident (principal); F25.9 Schizoaffective disorder, unspecified; E87.1 Hypo-osmolality and hyponatremia; E87.6 Hypokalemia; F13.10 Sedative, hypnotic or anxiolytic abuse, uncomplicated; F25.0 Schizoaffective disorder, bipolar type
CPT/HCPCS: 36415; 70450; 71045; 72125; 80048; 80076; 80299; 80307; 80320; 81003; 82140; 82962 ×2; 84443; 84484; 85025; 85730; 96361; 96374; 99285; J3411; 70030-TC; G0480; J7030

== ENCOUNTER 2020-08-21 06:17 | Emergency (ER) | payer SELFPAY ==
--- NOTE | 2020-08-21 06:33 | NUR ---
Patient went up to registration window and told her she did not want to be seen anymore.
--- NOTE | 2020-08-21 06:35 | NUR ---
Patient was not triaged or seen by ERMD.
== END 2020-08-21 06:36 | disposition left against medical advice (07) ==
LOC: ER 06:22
DX: Z53.21 Procedure and treatment not carried out due to patient leaving prior to being seen by health care provider (principal)

== ENCOUNTER 2020-09-05 13:33 | Inpatient (IN) | payer BC ==
[~2020-09-05] VITALS: Ht 170.2 cm; Wt 63.5 kg
[2020-09-05] VITALS (7 sets, daily range): BP systolic 120–166; BP diastolic 78–99
--- NOTE | 2020-09-05 13:45 | NUR ---
PT IS IN ROOM #1B. DR SANTANA EVALUATED THE PT.
--- NOTE | 2020-09-05 13:54 | NUR ---
[employer] OFFICERS AT THE BEDSIDE . PT WAS PLACED ON H0LD DANGER TO HERSELF AND SUICIDAL. PT IS RESTING IN BED COMFORTABLY. NO S/S OF ACUTE DISTRESS AT THIS TIME. CONTINUE TO MONITOR THE PT.
[2020-09-05] MEDS ORDERED: ONDANSETRON 4 MG/2 ML VIAL ONE (13:58)
[2020-09-05] MEDS ORDERED: CHARCOAL/SORBITOL SOLUTION 50 GM/240 ML BOTTLE ONE (13:58)
[2020-09-05] MEDS ORDERED: ONDANSETRON 4 MG/2 ML VIAL IV ONE (14:00)
[2020-09-05] MEDS ORDERED: CHARCOAL/SORBITOL SOLUTION 50 GM/240 ML BOTTLE PO ONE ×2 (14:00→18:45)
[2020-09-05] MEDS ORDERED: CARB200T PO (14:14)
[2020-09-05] MEDS ORDERED: OMEP20CA15 PO (14:14)
[2020-09-05] MEDS ORDERED: OLAN10TA3 PO (14:14)
[2020-09-05] MEDS ORDERED: GABA-532 PO (14:14)
[2020-09-05] MEDS ORDERED: HYDR-501 PO (14:14)
[2020-09-05] MEDS ORDERED: HYDR-4077 PO (14:14)
[2020-09-05] MEDS ORDERED: IV NORMAL SALINE 1000 ML BAG IV ONE (14:15)
[2020-09-05] MEDS: MAGNESIUM SULFATE/D5W 100 ML IV SCH ×2 (14:22→15:19)
--- NOTE | 2020-09-05 14:23 | NUR ---
PT WENT TO THE RESTROOM TO URINATE. GAIT WAS STABLE. PT IS RESTING IN BED NOW. NO S/S OF ACUTE DISTRESS AT THIS TIME.
[2020-09-05] MEDS ORDERED: MAGNESIUM SULFATE/D5W 200 ML ONE (14:31)
[2020-09-05 14:45] LABS: BASOPHILS % (AUTO) 0.2 % (0.0-2.0); EOSINOPHILS % (AUTO) 0.1 % (0.0-7.0); HEMATOCRIT 41.7 % (31.2-41.9); HEMOGLOBIN 14.1 g/dL (10.9-14.3); LYMPHOCYTES # (AUTO) 0.6 K/uL (20.0-40.0); LYMPHOCYTES % (AUTO) 5.1 % (20.5-51.5); MEAN CORPUSCULAR HEMOGLOBIN 32.8 uug (24.7-32.8); MEAN CORPUSCULAR HGB CONC 34 g/dL (32.3-35.6); MEAN CORPUSCULAR VOLUME 97.5 fL (75.5-95.3); NEUTROPHILS # (AUTO) 10.6 K/uL (1.8-8.9); NEUTROPHILS % (AUTO) 86.6 % (38.5-71.5); PLATELET COUNT (AUTO) 247 K/uL (179-408); RED BLOOD CELL COUNT(AUTO) 4.28 MIL/uL (3.63-4.92); WHITE BLOOD COUNT (AUTO) 12.3 K/uL (3.8-11.8)
[2020-09-05 14:52] LABS: CARBON DIOXIDE 25 mmol/L (21-32); CHLORIDE 101 mmol/L (98-107); CREATININE 0.6 mg/dL (0.6-1.3); GLUCOSE 104 mg/dL (74-106); POTASSIUM 3.7 mmol/L (3.5-5.1); UREA NITROGEN, BLOOD 6 mg/dL (7-18)
[2020-09-05 14:55] LABS: ETHANOL < 3 MG/DL (0-0)
[2020-09-05 14:56] LABS: ACETAMINOPHEN < 2.0 ug/mL (10-30); ALANINE AMINOTRANSFERASE 17 U/L (14-59); ALKALINE PHOSPHATASE 90 U/L (50-136); ASPARTATE AMINOTRANSFERASE 15 U/L (15-37); BILIRUBIN,DIRECT 0.1 mg/dL (0.0-0.2); BILIRUBIN,TOTAL 0.2 mg/dL (0.2-1.0); TOTAL PROTEIN, SERUM 6.3 g/dL (6.4-8.2)
[2020-09-05 15:08] LABS: THYROID STIMULATING HORMONE 2.251 mIU/mL (0.358-3.740)
[2020-09-05] MEDS ORDERED: POTASSIUM CHLORIDE 50 ML IV SCH (15:45)
[2020-09-05 16:02] LABS: *BILIRUBIN,URIN NEGATIVE (NEGATIVE); *CLARITY,URINE CLEAR (CLEAR); *COLOR,URINE LIGHT YELLOW (YELLOW); *KETONES,URINE NEGATIVE (NEGATIVE); *UROBILINOGEN,URINE 0.2 E.U./dl (NORMAL); LEUKOCYTE ESTERASE ,URINE NEGATIVE (NEGATIVE); NITRITE, URINE NEGATIVE (NEGATIVE); UGLUCOSE NEGATIVE (NEGATIVE)
[2020-09-05 16:03] LABS: *BLOOD, URINE TRACE LYSED (NEGATIVE)
[2020-09-05] MEDS ORDERED: POTASSIUM CHLORIDE 50 ML ONE (16:07)
[2020-09-05 16:08] LABS: *AMPHETAMINE, URINE NEGATIVE (NEGATIVE); *CANNABINOID, URINE NEGATIVE (NEGATIVE); *COCCAINE, URINE NEGATIVE (NEGATIVE); *OPIATE, URINE NEGATIVE (NEGATIVE); *PHENCYCLIDINE SCREEN,URINE NEGATIVE (NEGATIVE)
[2020-09-05 16:12] LABS: BACTERIA,URINE NONE SEEN /HPF (NONE SEEN); WBC,URINE 0-3 /HPF (0-3)
--- NOTE | 2020-09-05 16:59 | NUR ---
REPORT WAS GIVEN TO PV INSTALLER TECH. PT WAS TRANSFERED TO CCU ROOM #2.
--- NOTE | 2020-09-05 17:30 | NUR ---
Patient received from ER, transferred from [facility] to bed. Placed patient on bedside monitor sinus rhythm, room air saturation WNL, BP WNL. Afebrile. Patient on continuous monitoring and Cornell catheter placed. Patient educated on safety precautions and how to use television and call light. Patient made comfortable and pictures taken of right elbow wound and left big toe.
[2020-09-05] MEDS ORDERED: ACETAMINOPHEN 650 MG SUPP.RECT RC PRN (18:00)
[2020-09-05] MEDS ORDERED: LORAZEPAM 2 MG/1 ML VIAL IV STA (18:08)
[2020-09-05] MEDS ORDERED: CHARCOAL ACTIVATED (WITHOUT SORBITOL) 50 G/240 ML BOTTLE PO ONE (18:15)
[2020-09-05] MEDS: IV NS 1000 ML 1,000 ML IV PRN (18:27)
[2020-09-05] MEDS: ONDANSETRON 4 MG/2 ML VIAL IV PRN ×2 (18:48→20:50)
[2020-09-05] MEDS: ENOXAPARIN SODIUM 40 MG/0.4 ML DISP.SYRIN SQ SCH (18:50)
[2020-09-05] MEDS ORDERED: CALCIUM GLUCONATE IV 1 GM in IV NORMAL SALINE 100 ML IV ONE (19:15)
--- NOTE | 2020-09-05 19:23 | NUR ---
PATIENT REMAINS STABLE AT THIS TIME, SINUS RHYTHM ON THE MONITOR, ROOM AIR SATURATION 98%, BP WNL. BED IN LOW POSITION, SIDE RAILS UPX2. NO DISTRESS AT THIS TIME.
--- NOTE | 2020-09-05 20:34 | NUR ---
Received patient lying in bed, denies current suicidal ideation. when asked patient speaks of feeling mocked by television and stressed that her children do not want to see her. Monitor RSR, afebgrile. Patient has 20 gauge angio R AC with NS infusing @ 75cc/hour. Patient curtrently receiving Calcium Gluconate IV. patient is being followed by poison control for OD on Tegretol, Hydroxyzine and Zyprexa. Thinhgs to watch for per poison control are: bradycardia, hypotension and respiratory arrest. Mark is sipping charcoal with sips of water, otherwise NPO for now. Patient has mendez, urine clear yellow.
--- NOTE | 2020-09-05 22:18 | NUR ---
Spoke with Abdelrahman at Poison Control and EKG was recommended. EKG showed prolonged QTc of 488. call placed to precision inspector MD regarding Tylenol order and NPO status. Addendum: 09/05/20 at [address] [facility] INPATIENT RN2 RN Will change order to po per Fer Knox NP and can start po liquids
[2020-09-05] MEDS: ACETAMINOPHEN 325 MG TABLET PO PRN (22:51)
--- NOTE | 2020-09-05 23:47 | NUR ---
Repeat Tegretol level 29.6, trending downward
[2020-09-06] VITALS (23 sets, daily range): BP systolic 107–137; BP diastolic 37–89
[2020-09-06] MEDS: IV NS 1000 ML 1,000 ML IV PRN ×2 (06:56→20:11)
[2020-09-06 07:09] LABS: BASOPHILS % (AUTO) 0.5 % (0.0-2.0); EOSINOPHILS # (AUTO) 0.1 K/uL (0.0-0.7); EOSINOPHILS % (AUTO) 1.1 % (0.0-7.0); HEMATOCRIT 39.9 % (31.2-41.9); HEMOGLOBIN 13.5 g/dL (10.9-14.3); LYMPHOCYTES % (AUTO) 25.5 % (20.5-51.5); MEAN CORPUSCULAR HEMOGLOBIN 32.6 uug (24.7-32.8); MEAN CORPUSCULAR HGB CONC 34 g/dL (32.3-35.6); MEAN CORPUSCULAR VOLUME 96.2 fL (75.5-95.3); MONOCYTES # (AUTO) 1.1 K/uL (2.0-10.0); MONOCYTES % (AUTO) 13.9 % (0.0-11.0); NEUTROPHILS # (AUTO) 4.5 K/uL (1.8-8.9); PLATELET COUNT (AUTO) 234 K/uL (179-408); RED BLOOD CELL COUNT(AUTO) 4.15 MIL/uL (3.63-4.92); WHITE BLOOD COUNT (AUTO) 7.7 K/uL (3.8-11.8)
[2020-09-06 07:15] LABS: CREATININE 0.7 mg/dL (0.6-1.3); MAGNESIUM 2.3 mg/dL (1.8-2.4); POTASSIUM 3.5 mmol/L (3.5-5.1)
--- NOTE | 2020-09-06 07:15 | NUR ---
Received report from shift supervisor rn nurse, patient in bed awake, dosing intermittently. Patient continues to be in sinus rhythm, occasionally bradycardic. Patient is stable on room air saturation on 95%. Cornell catheter is intact and draining appropriately. Bed in low position, side rails up x2, bed alarm is on. All alarms checked for accuracy. WIll continue to closely monitor.
[2020-09-06 07:46] LABS: CREATININE 0.6 mg/dL (0.6-1.3); MAGNESIUM 2.3 mg/dL (1.8-2.4); PHOSPHOROUS 3.2 mg/dL (2.5-4.9); POTASSIUM 3.8 mmol/L (3.5-5.1)
[2020-09-06] MEDS: NICOTINE 7 MG/24HR PATCH TD SCH (08:17)
[2020-09-06] MEDS: PANTOPRAZOLE SODIUM 40 MG VIAL IV SCH (08:17)
--- NOTE | 2020-09-06 11:35 | NUR ---
Patient started yelling that there is something in her head and it is driving her crazy. Asked for tylenol.
[2020-09-06] MEDS: ACETAMINOPHEN 325 MG TABLET PO PRN ×2 (11:37→21:25)
--- NOTE | 2020-09-06 12:40 | NUR ---
Patient being seen by Dr. Johnson at this time.
--- NOTE | 2020-09-06 15:47 | NUR ---
Received orders to discontinue repeat q4h tegretol level labs once below 20.
[2020-09-06] MEDS: ENOXAPARIN SODIUM 40 MG/0.4 ML DISP.SYRIN SQ SCH (18:19)
--- NOTE | 2020-09-06 18:23 | NUR ---
Received call from patients outpatient psychiatrist and was asked to request her [place] provider to give B12 shot and a "Banana bag" even if electrolyte levels are ok. Dr. Parr states that the patient has a history of drinking and poor food intake and thinks that she may have wenickes encephalopathy and korsakoffs syndrome. Relayed message to Fer Knox.
--- NOTE | 2020-09-06 18:35 | NUR ---
Checked patient for ataxia and nystagmus. Negative for both. Reported results to Fer Knox. Patient seen by cardiology.
[2020-09-06] MEDS ORDERED: MISCELLANEOUS MED XX PRN (19:15)
[2020-09-06] MEDS ORDERED: THIAMINE HCL 200 MG/2 ML VIAL ONE ×2 (20:49→21:16)
[2020-09-06] MEDS ORDERED: THIAMINE HCL IV SCH (22:00)
[2020-09-06] MEDS ORDERED: DEXTROSE 5% IV SCH (22:00)
[2020-09-07] VITALS (14 sets, daily range): BP systolic 123–136; BP diastolic 20–89
--- NOTE | 2020-09-07 02:00 | NUR ---
This shift: Emotional, tearful, talking about her life & family. Discusses how she is all alone in life & how her problems in her head keep coming at her.
[2020-09-07] MEDS: ACETAMINOPHEN 325 MG TABLET PO PRN (03:15)
[2020-09-07 05:30] LABS: BASOPHILS # (AUTO) 0.1 K/uL (0.0-8.0); EOSINOPHILS # (AUTO) 0.2 K/uL (0.0-0.7); EOSINOPHILS % (AUTO) 2.5 % (0.0-7.0); HEMATOCRIT 41.4 % (31.2-41.9); LYMPHOCYTES # (AUTO) 2.2 K/uL (20.0-40.0); LYMPHOCYTES % (AUTO) 24.7 % (20.5-51.5); MEAN CORPUSCULAR HEMOGLOBIN 32.6 uug (24.7-32.8); MEAN CORPUSCULAR HGB CONC 34 g/dL (32.3-35.6); MEAN CORPUSCULAR VOLUME 96.5 fL (75.5-95.3); MONOCYTES # (AUTO) 1.1 K/uL (2.0-10.0); MONOCYTES % (AUTO) 11.8 % (0.0-11.0); NEUTROPHILS # (AUTO) 5.4 K/uL (1.8-8.9); PLATELET COUNT (AUTO) 234 K/uL (179-408); RED BLOOD CELL COUNT(AUTO) 4.29 MIL/uL (3.63-4.92); WHITE BLOOD COUNT (AUTO) 8.9 K/uL (3.8-11.8)
[2020-09-07 05:44] LABS: CREATININE 0.7 mg/dL (0.6-1.3); MAGNESIUM 1.8 mg/dL (1.8-2.4); PHOSPHOROUS 3.4 mg/dL (2.5-4.9); POTASSIUM 3.6 mmol/L (3.5-5.1)
[2020-09-07] MEDS ORDERED: THIAMINE HCL IV SCH ×2 (06:00→06:13)
[2020-09-07] MEDS ORDERED: DEXTROSE 5% IV SCH ×2 (06:00→06:13)
--- NOTE | 2020-09-07 07:15 | NUR ---
Received report from environmental studies faculty member nurse, patient in bed awake and frequently using call light during the shift report to ask for something to calm her down like Ativan and that she is all worked up. Sinus rhythm on the monitor, room air saturation 97%, bed in low position, side rails upx2. Checked all alarms for accuracy.
[2020-09-07] MEDS: NICOTINE 7 MG/24HR PATCH TD SCH (08:38)
[2020-09-07] MEDS: PANTOPRAZOLE SODIUM 40 MG VIAL IV SCH (09:01)
--- NOTE | 2020-09-07 09:15 | NUR ---
Patient noted to be speaking on the phone to someone and stated that, "My life is worth nothing, I could just and be Thrown away".
--- NOTE | 2020-09-07 10:42 | NUR ---
Patient is frequently yelling out that she is just a carcass and her life is useless. Patient having crying spells. Notified BATTERY HAND Knox. Orders to be placed by provider.
[2020-09-07] MEDS ORDERED: LORAZEPAM 2 MG/1 ML VIAL IV PRN (11:15)
--- NOTE | 2020-09-07 11:17 | NUR ---
Patient states that she is having voices in her head that are saying, "You better you fucking scumbag". Patient yelling and banging head against the bed.
[2020-09-07] MEDS: IV NS 1000 ML 1,000 ML IV PRN (12:53)
[2020-09-07] MEDS ORDERED: OLANZAPINE 2.5 MG TABLET PO SCH (13:00)
--- NOTE | 2020-09-07 14:35 | NUR ---
Patient discharged to [facility]. IV removed, all tubing disconnected.
[2020-09-08] MEDS ORDERED: PANTOPRAZOLE SODIUM 40 MG TABLET.DR PO SCH (07:00)
== END 2020-09-07 14:36 | DRG 918 ==
LOC: ER 13:33 → CCU 17:03
PROVIDERS: ADMIT Nurse Practitioner Family; ATTEND Nurse Practitioner Family
DX: T42.1X2A Poisoning by iminostilbenes, intentional self-harm, initial encounter (principal); R45.851 Suicidal ideations; R94.31 Abnormal electrocardiogram [ECG] [EKG]; T42.6X2A Poisoning by other antiepileptic and sedative-hypnotic drugs, intentional self-harm, initial encounter; T43.222A Poisoning by selective serotonin reuptake inhibitors, intentional self-harm, initial encounter; F25.9 Schizoaffective disorder, unspecified; D72.829 Elevated white blood cell count, unspecified; F43.9 Reaction to severe stress, unspecified; Z79.899 Other long term (current) drug therapy; T43.592A Poisoning by other antipsychotics and neuroleptics, intentional self-harm, initial encounter; T47.1X2A Poisoning by other antacids and anti-gastric-secretion drugs, intentional self-harm, initial encounter; Y92.009 Unspecified place in unspecified non-institutional (private) residence as the place of occurrence of the external cause; F09 Unspecified mental disorder due to known physiological condition; Z20.822 Contact with and (suspected) exposure to COVID-19; R40.2142 Coma scale, eyes open, spontaneous, at arrival to emergency department; R40.2362 Coma scale, best motor response, obeys commands, at arrival to emergency department; R40.2252 Coma scale, best verbal response, oriented, at arrival to emergency department; Z72.89 Other problems related to lifestyle
CPT/HCPCS: 36415; 70030-TC; 70450; 71045; 73080; 83735; 84100; 84443; 85025; 85610; 93005; 93307; A4663; A9150; C9113; G0378; G0480; J0610; J1650; J2060; J2405; J3411; J3475; J3480; J3490; J7030; J7060

== ENCOUNTER 2020-09-07 14:44 | Inpatient (IN) | payer BC ==
[~2020-09-07] VITALS: Ht 170.2 cm; Wt 64.9 kg
[~2020-09-07 14:44] MED LIST changes: +CARB200T PO; -CEPH500C2 PO; +GABA-532 PO; +HYDR-4077 PO; +HYDR-501 PO; +OLAN10TA3 PO; +OMEP20CA15 PO
[2020-09-07 15:30] VITALS: BP 132/34
--- NOTE | 2020-09-07 15:30 | NUR ---
Patient admitted as GPS patient. Belongings recorded and secured, wires removed from room except call light and tv remote. CLose monitoring initiated. Trash and laundry bag removed from room. Vitals recorded and patient weighed.
[2020-09-07] MEDS ORDERED: MAGNESIUM HYDROXIDE 30 ML LIQUID UDC PO PRN (15:45)
[2020-09-07] MEDS ORDERED: MAG HYDROX/AL HYDROX/SIMETH 30 ML LIQUID UDC PO PRN (15:45)
[2020-09-07] MEDS ORDERED: BLOOD SUGAR DIAGNOSTIC 1 EACH STRIP VI ONE (15:45)
--- NOTE | 2020-09-07 19:00 | NUR ---
Patient is a 55y/o female, currently admitted to GPS. patient is in bed currently calm watching TV. Patient has several areas of bruising that were present on admission, most notably the left elbow which has a large scab and noticeable edema. Photos taken and placed in the chart. Patient is otherwise in stable condition. VS stable.
--- NOTE | 2020-09-07 19:10 | NUR ---
All items which would be a safety/suicide risk have been removed from the room. All cords and cables from the bedside monitor have been removed. Telephone has been removed. All other cables removed from the room. Trash and linen cart removed from the room due to plastic bags utilized in these. All personal belongings present and accounted for in the nurse's station.
[2020-09-07] MEDS: LORAZEPAM 0.5 MG TABLET PO PRN (19:28)
[2020-09-07 20:00] VITALS: BP 128/62
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
[2020-09-08] VITALS: BP 121/50
[2020-09-08 04:00] VITALS: BP 113/57
--- NOTE | 2020-09-08 07:01 | NUR ---
Patient remains in stable condition. Patient slept the entire night from 2215 and is currently still asleep. She told me that she has not slept well in a long time which would explain her long sleep last night. Patient did express to me during AM vitals that she remains convicted that she wants to get her affairs in order so she can get her life back on track. Patient claims to have no desire to kill herself, and is just anxious to get her kids back and move on with her life and put this episode behind her. VS have remained stable during shift. No SOb or signs of distress.
[2020-09-08 08:00] VITALS: BP 112/83
--- NOTE | 2020-09-08 08:15 | NUR ---
Seen by Dr Corbin, Volunteer Services Assistant. New order received and implemented.
--- NOTE | 2020-09-08 09:42 | NUR ---
Received patient asleep in bed, easily arousable. Now sitting up in bed and watching TV. Appears calm with periods of anxiety regarding calling several places to have outside issues fixed so that she will be able to take care of her children. Phone in the room not currently working, placed a work order with engineering and notified IT department of issue at 0845. Patient calms herself down easily. States she no longer have desire to kill herself and just want to get her affairs in order so that she can take care of her children. Will continue to monitor.
[2020-09-08] MEDS: LORAZEPAM 0.5 MG TABLET PO PRN ×2 (10:52→20:49)
[2020-09-08] MEDS: OXCARBAZEPINE 150 MG TABLET PO SCH ×2 (13:06→17:04)
[2020-09-08] MEDS: OLANZAPINE 2.5 MG TABLET PO SCH ×3 (13:06→20:50)
--- NOTE | 2020-09-08 14:11 | NUR ---
KEYANNA Note: SW met with patient today and discussed treatment and discharge plan. Patient presents alert and oriented x4 and is aware of the reason for her hospitalization. Patient expresses suicidal ideation. Patient states she "has a lot going on in her life and is feeling overwhelmed". Patient will be coming to MHU today is aware of her treatment and discharge plan.
[2020-09-08 16:00] VITALS: BP 114/81
--- NOTE | 2020-09-08 18:24 | NUR ---
Gave report to Humphrey CHEW. Will order picker/assembler patient from CCU momentarily. Patient resting in bed. Verbalized feeling anxious about moving to a new place. Reminded to practice deep breathing to keep herself calm. Will give belongings and chart to RN when patient gets picked up.
--- NOTE | 2020-09-08 18:30 | NUR ---
NAINA Yin and CRISSY Abbott picked up patient via wheelchair.
--- NOTE | 2020-09-08 18:58 | NUR ---
Patient transferred to MHU room 145-A in a wheelchair from CCU. Patient transferred accompanied by RN and CRISSY. Received report from NAINA Vela. All questions, comments, and concerns were addressed. Patient is alert and oriented x4, she is anxious, guarded, and withdrawn. Patient oriented to the MHU unit rules and policies, oriented to her assigned room and to the unit. Patient educated about MHU program. Currently, patient denies SI/HI, denies AH/VH. She states that she has a long history of mental illness and of admission to mental health units. Patient provided with a shower and clean clothing.
[2020-09-08 20:19] VITALS: BP 134/84
[2020-09-08] MEDS: TEMAZEPAM 7.5 MG CAPSULE PO PRN (22:31)
[2020-09-08] MEDS: ACETAMINOPHEN 325 MG TABLET PO PRN (22:31)
[2020-09-09 07:30] VITALS: BP 105/67
[2020-09-09] MEDS: OLANZAPINE 2.5 MG TABLET PO SCH ×2 (08:22→12:15)
[2020-09-09] MEDS: LORAZEPAM 0.5 MG TABLET PO PRN ×2 (08:22→16:14)
[2020-09-09] MEDS: ACETAMINOPHEN 325 MG TABLET PO PRN ×2 (08:22→21:28)
[2020-09-09] MEDS: OXCARBAZEPINE 150 MG TABLET PO SCH (08:22)
--- NOTE | 2020-09-09 10:16 | NUR ---
KEYANNA Initial Discharge Plan: Patient resides at [place] [id number] [place] [address] [place] [address] ([phone]) by herself. Pt would like to return home upon discharge. Pt has little to no family support, as her siblings live in [place]. KEYANNA will continue to work with patient and MD to ensure a safe and proper discharge plan.
--- NOTE | 2020-09-09 10:16 | NUR ---
Brief Substance Abuse Intervention: Patient was provided with a brief substance abuse intervention for alcohol and dugs abuse and referred to the following substance abuse programs: [facility]stance Abuse Self-helpline ([phone]); [facility] [address] [place] [address] ([phone]); [address] [address] ([phone]); [facility] ([phone]); [facility] ([phone]); [facility] ([phone]); [facility] ([phone]).
--- NOTE | 2020-09-09 10:18 | NUR ---
Firearms Report: International Editorial Producer completed and submitted a [employer] firearms report for 5150 danger to self certifications. A copy of report has been placed in patient chart.
--- NOTE | 2020-09-09 10:52 | NUR ---
UR NOTE: Auth: [id number] Case Manger: Jus Pierre ( [id number]). KEYANNA left a voicemail for thorough clinical review including patient diagnosis, current status and current medications. KEYANNA requested a call back to confirm clinicals were received. Addendum: 09/09/20 at 1553 by LISA PARSON KEYANNA received a call back from Matty who confirmed patient is authorized for 3 additional days until 09/12/20.
[2020-09-09] MEDS: OXCARBAZEPINE 300 MG TABLET PO SCH ×2 (12:15→16:14)
[2020-09-09] MEDS ORDERED: OXCARBAZEPINE 150 MG TABLET PO SCH (13:00)
[2020-09-09] MEDS: CEphaleXIN 250 MG CAPSULE PO SCH ×2 (15:02→21:28)
[2020-09-09 15:25] VITALS: BP 126/89
[2020-09-09] MEDS: OLANZAPINE 5 MG TABLET PO SCH (16:14)
[2020-09-09] MEDS: IBUPROFEN 400 MG TABLET PO PRN (17:12)
[2020-09-09 20:11] VITALS: BP 99/70
--- NOTE | 2020-09-09 23:12 | NUR ---
RECEIVED PATIENT IN THE DAY ROOM. SHE IS NOTED A/O X 3 ABLE TO VERBALIZED FEELINGS AND ABLE TO AMBULATE WITH STEADY GAIT. UPON INTERVIEW PATIENT STARED CRYING, THEN SHE ASKED FOR TEA. SHE STATED, "I AM JUST SAD, I DON'T REMEMBER WHAT I DID. I REMEMBER TAKING MY MEDICATIONS THEN I FELT DOWN THE STAIRS. I REMEMBER CALLING 911 AND THEY BROUGHT ME HERE TO [facility]. I DIDN'T WANT TO KILL MYSELF. IT IS FUSSY". HER MOOD IS LOW, AFFECT IS LABILE. PATIENT DENIES SUICIDAL IDEAS OR INTENSIONS, DENIAL IS CONVINCING. IN ADDITION, SHE WAS ABLE TO VERBALLY CFS. SHE IS REASSURED FOR HER SAFETY. V/S STABLE. PATIENT WAS GIVEN PO FLUIDS AND SNACKS. SAFETY AND FALL PRECAUTION IN PLACE, WILL CONTINUE TO MONITOR.
[2020-09-10] MEDS: PANTOPRAZOLE SODIUM 40 MG TABLET.DR PO SCH (06:33)
[2020-09-10] MEDS: CEphaleXIN 250 MG CAPSULE PO SCH ×3 (06:33→21:46)
--- NOTE | 2020-09-10 06:48 | NUR ---
PATIENT SLEPT FOR APPROX. 5.30 HRS THROUGH THE NIGHT. SHE CONTINUE COMPLIANT WITH MEDICATION REGIMENT. APPEARS TO MINIMIZED SYMPTOMS.
[2020-09-10 07:30] VITALS: BP 135/85
[2020-09-10] MEDS: OLANZAPINE 2.5 MG TABLET PO SCH ×2 (09:13→12:10)
[2020-09-10] MEDS: OXCARBAZEPINE 300 MG TABLET PO SCH ×3 (09:14→17:59)
--- NOTE | 2020-09-10 10:51 | NUR ---
Court Hearing: Patient's court hearing for 5250 was today and it was upheld for GD and danger to self.
[2020-09-10] MEDS: ACETAMINOPHEN 325 MG TABLET PO PRN (12:10)
[2020-09-10] MEDS ORDERED: HYDROCORTISONE 0.5% CREAM 28.35 GM TUBE TOP PRN (14:45)
[2020-09-10 16:00] VITALS: BP 123/85
[2020-09-10] MEDS: OLANZAPINE 5 MG TABLET PO SCH (17:59)
[2020-09-10 20:23] VITALS: BP 141/94
[2020-09-10] MEDS: IBUPROFEN 400 MG TABLET PO PRN (20:47)
[2020-09-10] MEDS: LORAZEPAM 0.5 MG TABLET PO PRN (21:23)
--- NOTE | 2020-09-10 21:30 | NUR ---
RECEIVED PATIENT IN THE DAY ROOM. SHE IS NOTED A/O X 3. NOTED WITH ANXIOUS MOOD, AFFECT IS BLUNTED. SHE IS ABLE TO VERBALIZED FEELINGS. PATIENT APPEARS TO MINIMIZED SYMPTOMS. NOTED GOAL ORIENTED, SHE STATED, "I WANT TO GET BETTER SO A CAN GET BY CHILDREN BACK". PATIENT DENIED SUICIDAL IDEATION OR INTENT. SHE IS ABLE TO VERBALLY CFS. ATIVAN 0.5MG PO PRN WAS GIVEN FOR ANXIETY. SHE IS REASSURED FOR HIS SAFETY. V/S STABLE. SAFETY AND FALL PRECAUTION IN PLACE. WILL CONTINUE TO MONITOR.
[2020-09-10] MEDS: TEMAZEPAM 7.5 MG CAPSULE PO PRN (22:45)
[2020-09-11] MEDS: PANTOPRAZOLE SODIUM 40 MG TABLET.DR PO SCH (06:34)
[2020-09-11] MEDS: CEphaleXIN 250 MG CAPSULE PO SCH ×3 (06:34→20:08)
[2020-09-11 07:30] VITALS: BP 122/80
[2020-09-11] MEDS: OXCARBAZEPINE 300 MG TABLET PO SCH ×3 (09:49→17:40)
[2020-09-11] MEDS: OLANZAPINE 2.5 MG TABLET PO SCH ×2 (09:49→14:29)
[2020-09-11] MEDS: LORAZEPAM 0.5 MG TABLET PO PRN ×2 (10:02→20:08)
[2020-09-11] MEDS: IBUPROFEN 400 MG TABLET PO PRN (10:09)
[2020-09-11 16:00] VITALS: BP 108/79
[2020-09-11] MEDS: OLANZAPINE 5 MG TABLET PO SCH (17:40)
[2020-09-11 20:18] VITALS: BP 121/84
[2020-09-11] MEDS: TEMAZEPAM 7.5 MG CAPSULE PO PRN (21:26)
[2020-09-11] MEDS: ACETAMINOPHEN 325 MG TABLET PO PRN (21:32)
--- NOTE | 2020-09-12 05:24 | NUR ---
Patient slept 6.15 hours last night. Plant Engineering Manager attempted to engage in meaningful conversation with the patient but was given only Yes or No answers, and not willing to elaborate. The patient had multiple requests for PRN medications and denies having active thoughts of SI or HI. Continuing to monitor the patient closely for safety, frequent rounding done. No labile mood but positive for depression. Safety Stratiges in place.
[2020-09-12] MEDS: CEphaleXIN 250 MG CAPSULE PO SCH ×3 (06:15→21:18)
[2020-09-12] MEDS: PANTOPRAZOLE SODIUM 40 MG TABLET.DR PO SCH (06:15)
[2020-09-12 07:30] VITALS: BP 131/79
[2020-09-12] MEDS: OLANZAPINE 2.5 MG TABLET PO SCH (08:11)
[2020-09-12] MEDS: OXCARBAZEPINE 300 MG TABLET PO SCH ×3 (08:11→17:11)
--- NOTE | 2020-09-12 09:23 | NUR ---
UR NOTE: Auth: [id number] Case Manger: Jusrj Roquemandymessi ( [id number]). KEYANNA left a voicemail for thorough clinical review including patient current status and current medications. KEYANNA informed of tentative discharge plan for Tuesday back home with aftercare. Addendum: 09/12/20 at 1055 by LISA PARSON Jus called this manager social back and stated the patient is authorized over the weekend Auth: [id number] until Tuesday09/15/20.
[2020-09-12] MEDS: LORAZEPAM 0.5 MG TABLET PO PRN ×2 (12:58→20:23)
[2020-09-12] MEDS: ACETAMINOPHEN 325 MG TABLET PO PRN (14:40)
[2020-09-12 16:38] VITALS: BP 114/75
[2020-09-12] MEDS: OLANZAPINE 5 MG TABLET PO SCH (17:11)
[2020-09-12 20:23] VITALS: BP 136/89
[2020-09-12] MEDS: TEMAZEPAM 7.5 MG CAPSULE PO PRN (21:09)
[2020-09-12] MEDS: IBUPROFEN 400 MG TABLET PO PRN (21:09)
--- NOTE | 2020-09-13 05:44 | NUR ---
PATIENT ALERT ORIENTED, WITH EPISODE OF ANXIETY, REQUESTED ATIVAN, MEDICATED ORDERED. PATIENT REQUEST SLEEPING AND MOTRIN FOR PAIN AND COMFORT WITH EFFECTIVE RESULTS. PATIENT SLEPT FOR 8:00 CONT ON ABX FOR ELBOW WOUND/CELLULITIS. CONT TO MONITOR.
[2020-09-13] MEDS: CEphaleXIN 250 MG CAPSULE PO SCH ×3 (05:48→22:00)
[2020-09-13] MEDS: PANTOPRAZOLE SODIUM 40 MG TABLET.DR PO SCH (06:10)
[2020-09-13] MEDS ORDERED: OLANZAPINE 2.5 MG TABLET PO SCH (08:00)
[2020-09-13 08:07] VITALS: BP 123/86
[2020-09-13] MEDS: OXCARBAZEPINE 300 MG TABLET PO SCH ×3 (09:05→17:22)
[2020-09-13] MEDS: IBUPROFEN 400 MG TABLET PO PRN (09:08)
[2020-09-13] MEDS: LORAZEPAM 0.5 MG TABLET PO PRN ×2 (11:15→20:12)
[2020-09-13] MEDS: ACETAMINOPHEN 325 MG TABLET PO PRN (13:51)
[2020-09-13 16:46] VITALS: BP 130/87
[2020-09-13] MEDS: OLANZAPINE 5 MG TABLET PO SCH (17:22)
--- NOTE | 2020-09-13 18:31 | NUR ---
NOTED EPISODES OF SEVERE DEPRESSION MANIFESTED BY SHEDDING OF TEARS STATED VERY UNHAPPY ABOUT HER KIDS THAT WAS TAKEN BY THE CPS AND AFRAID THAT THEY MIGHT BE ADOPTED OUT BUT ASKED HER IF SHE HAD ANY FAMILY MEMBER WHO COULD STEP IN AND SHE STATED THAT HER BROTHERS WILL BE HERE IN A WEEK OR SO FROM [place] AND WILL TRY TO HELP HER GET THEM OUT PATIENT REASSURED TO AT LEAST TAKE HER MEDICATIONS ORDERED AND BE READY TO BE DISCHARGED TIMELY THEN SHE CAN BE ABLE TO HELP HER BROTHERS GET HER KIDS HOME AND SHE WAS OPTIMISTIC AT THIS TIME WILL CONTINUE TO OBSERVE AND PROVIDE SAFE AND THERAPEUTIC ENVIRONMENT AT ALL TIMES.
[2020-09-13 19:53] VITALS: BP 121/76
[2020-09-14] MEDS: PANTOPRAZOLE SODIUM 40 MG TABLET.DR PO SCH (06:03)
[2020-09-14] MEDS: CEphaleXIN 250 MG CAPSULE PO SCH ×2 (06:03→13:03)
[2020-09-14 07:30] VITALS: BP 116/82
[2020-09-14] MEDS: LORAZEPAM 0.5 MG TABLET PO PRN ×3 (08:04→17:30)
[2020-09-14] MEDS: OLANZAPINE 5 MG TABLET PO SCH ×2 (08:04→16:32)
[2020-09-14] MEDS: OXCARBAZEPINE 300 MG TABLET PO SCH ×3 (08:04→16:32)
--- NOTE | 2020-09-14 08:04 | NUR ---
STATED FEELING ANXIETY MEDICATED WITH ATIVAN ORDERED PATIENT REASSURED AND ENCOURAGED TO RELAX
[2020-09-14] MEDS: IBUPROFEN 400 MG TABLET PO PRN (10:32)
[2020-09-14] MEDS: ACETAMINOPHEN 325 MG TABLET PO PRN (14:37)
[2020-09-14 16:00] VITALS: BP 108/78
--- NOTE | 2020-09-14 17:30 | NUR ---
REQUESTING FOR ATIVAN FOR ANXIETY MEDICATED ORDERED AND STATED HELPFUL WILL CONTINUE TO OBSERVE
[2020-09-14 20:00] VITALS: BP 127/80
[2020-09-14] MEDS: TEMAZEPAM 7.5 MG CAPSULE PO PRN (21:02)
[2020-09-15] MEDS: PANTOPRAZOLE SODIUM 40 MG TABLET.DR PO SCH (06:29)
[2020-09-15 07:30] VITALS: BP 115/91
[2020-09-15] MEDS: IBUPROFEN 400 MG TABLET PO PRN ×3 (07:38→20:23)
[2020-09-15] MEDS: OLANZAPINE 5 MG TABLET PO SCH ×2 (07:38→16:40)
[2020-09-15] MEDS: OXCARBAZEPINE 300 MG TABLET PO SCH ×3 (08:23→16:40)
[2020-09-15] MEDS: LORAZEPAM 0.5 MG TABLET PO PRN ×4 (09:01→22:52)
[2020-09-15 15:05] VITALS: BP 104/72
--- NOTE | 2020-09-15 18:39 | NUR ---
received patient pleasant upon approach. able to make all needs known. denies SI/HI at this time. c/o anxiety Ativan 0.5 mg given as ordered compliant with medications and care.
[2020-09-15 20:00] VITALS: BP 111/69
[2020-09-15] MEDS ORDERED: OLANZAPINE 5 MG TABLET PO SCH (21:00)
[2020-09-15] MEDS: TEMAZEPAM 7.5 MG CAPSULE PO PRN (21:47)
[2020-09-16] MEDS: PANTOPRAZOLE SODIUM 40 MG TABLET.DR PO SCH (06:06)
[2020-09-16] MEDS: LORAZEPAM 0.5 MG TABLET PO PRN (08:00)
[2020-09-16] MEDS: OXCARBAZEPINE 300 MG TABLET PO SCH (08:00)
[2020-09-16] MEDS: OLANZAPINE 5 MG TABLET PO SCH (08:00)
--- NOTE | 2020-09-16 08:02 | NUR ---
Discharge Note: Patient will be discharged back home [address] [place] [address] ([phone]). Patient is provided with Taxi voucher and will be provide taxi transportation back home today at 11AM. Patient is alert and oriented x4 and is able to independently take care of herself. Patient is aware and agreeable with discharge plan. Patient denies suicidal or homicidal ideation. Patient denies visual or auditory hallucinations. Patient presents with euthymic mood and congruent affect. Patient will be following up with her primary physician Dr. Elier Dickinson [address] [place] [address] ([phone]). Patient stated she will be making her own follow up appointment. Patient will be following up with her psychiatrist Dr. Micheline Parr [address] [facility] [address] [address] ([phone]) and has an appointment scheduled on Wednesday September 16, 2020 at 1:30PM. Patient was provided with a brief substance abuse intervention and referred to the following substance abuse programs: [facility] Abuse Self[facility]helpl[facility] ([phone]); [facility] [address] [place] [address] ([phone]); [facility] [address] [facility] [address] ([phone]); [facility] ([phone]); [facility] ([phone]); [facility] ([phone]); [facility] ([phone]).
--- NOTE | 2020-09-16 09:58 | NUR ---
Patient will be discharged back home today via Taxi . Patient is provided with Taxi voucher and will be provide taxi transportation back home today at 11AM. patient's vital sign stable,all personal belonging returned to patient and signed.patient will continue taking all medication and follow up with psychiatrist and sueding machine operator.
--- NOTE | 2020-09-16 10:49 | NUR ---
UR NOTE: Auth: [id number] Case Manger: Jus Pierre ( [id number]). SW left a voicemail for thorough discharge clinicals including progress, aftercare, and discharge medications.
== END 2020-09-16 10:00 | disposition home or self-care (01) | DRG 885 ==
LOC: CCU 14:44 → GPS 09-08 18:51
PROVIDERS: ADMIT Psychiatry & Neurology Psychosomatic Medicine; ATTEND Nurse Practitioner Family
DX: F25.0 Schizoaffective disorder, bipolar type (principal); F01.50 Vascular dementia, unspecified severity, without behavioral disturbance, psychotic disturbance, mood disturbance, and anxiety; L03.113 Cellulitis of right upper limb; T42.1X Poisoning by, adverse effect of and underdosing of iminostilbenes; T43.592D Poisoning by other antipsychotics and neuroleptics, intentional self-harm, subsequent encounter; Z83.3 Family history of diabetes mellitus; F60.3 Borderline personality disorder; F41.9 Anxiety disorder, unspecified; F29 Unspecified psychosis not due to a substance or known physiological condition; F32.9 Major depressive disorder, single episode, unspecified; R94.31 Abnormal electrocardiogram [ECG] [EKG]
CPT/HCPCS: 93005; A4663; G0378

== ENCOUNTER 2020-10-04 00:58 | Inpatient (IN) | payer BC, OTHER ==
[~2020-10-04] VITALS: Ht 170.2 cm; Wt 64.4 kg
[~2020-10-04 00:58] MED LIST changes: -CARB200T PO; -FLUO40CA8 PO; -GABA-532 PO; -HYDR-4077 PO; -HYDR-501 PO; -LAMO100T2 PO; -LITH300T3 PO; -LORA-259 PO; -LURA80TA PO; -OLAN10TA3 PO
--- NOTE | 2020-10-04 01:09 | NUR ---
Pt bib ra83 for suicidal ideation, plan is to od on her pills. Called Landscape Horticulture Instructor for sitter, no sitter available at this time. Called Security to standby, stated that they have to go on their lunch break soon and won't be able to do it. ER staff will monitor patient at this time.
--- NOTE | 2020-10-04 01:36 | NUR ---
PATIENT HAD PORTABLE XRAY DONE BY TECHICIAN AT [facility].
--- NOTE | 2020-10-04 01:45 | NUR ---
PATIENT AAOX4/MAEX4,NO RESPIRATORY DISTRESS BREATHING EVEN AND UNLABORED .BELONGINGS COLLECTED AND PLACED ON THE BELONGING BAG .
--- NOTE | 2020-10-04 02:15 | NUR ---
ASKED PATIENT IF SHE HAS THE INTENTION OF KILLING HERSELF OR WISH THAT SHE SHE SAID NOT YET . NO ON SUIDIDAL IDEATION .
[2020-10-04 02:20] LABS: HEMATOCRIT 41.8 % (31.2-41.9); MEAN CORPUSCULAR HEMOGLOBIN 32.5 uug (24.7-32.8); MEAN CORPUSCULAR VOLUME 94.5 fL (75.5-95.3); PLATELET COUNT (AUTO) 286 K/uL (179-408)
[2020-10-04 02:31] LABS: CARBON DIOXIDE 28 mmol/L (21-32); CHLORIDE 102 mmol/L (98-107); CREATININE 0.7 mg/dL (0.6-1.3); GLUCOSE 100 mg/dL (74-106); POTASSIUM 4.3 mmol/L (3.5-5.1); UREA NITROGEN, BLOOD 9 mg/dL (7-18)
[2020-10-04 02:34] LABS: ETHANOL < 3 MG/DL (0-0)
[2020-10-04 02:37] LABS: ALANINE AMINOTRANSFERASE 26 U/L (14-59); ALKALINE PHOSPHATASE 114 U/L (50-136); ASPARTATE AMINOTRANSFERASE 16 U/L (15-37); BILIRUBIN,DIRECT 0.1 mg/dL (0.0-0.2); BILIRUBIN,TOTAL 0.5 mg/dL (0.2-1.0); TOTAL PROTEIN, SERUM 7.3 g/dL (6.4-8.2)
[2020-10-04 02:39] LABS: ACETAMINOPHEN < 2.0 ug/mL (10-30)
[2020-10-04 02:55] LABS: *BILIRUBIN,URIN NEGATIVE (NEGATIVE); *BLOOD, URINE 1+ (NEGATIVE); *CLARITY,URINE CLEAR (CLEAR); *COLOR,URINE YELLOW (YELLOW); *KETONES,URINE NEGATIVE (NEGATIVE); *UROBILINOGEN,URINE 0.2 E.U./dl (NORMAL); LEUKOCYTE ESTERASE ,URINE NEGATIVE (NEGATIVE); NITRITE, URINE NEGATIVE (NEGATIVE); PH,URINE 6.5 (5.0-8.0); UGLUCOSE NEGATIVE (NEGATIVE)
--- NOTE | 2020-10-04 03:01 | NUR ---
COLLECTED COVID 19 SWAB AND U/A.
[2020-10-04 03:04] LABS: BACTERIA,URINE NONE SEEN /HPF (NONE SEEN); SQUAMOUS EPITHELIAL CELL,UR FEW /HPF (NONE SEEN); WBC,URINE 0-3 /HPF (0-3)
[2020-10-04 03:09] LABS: *AMPHETAMINE, URINE NEGATIVE (NEGATIVE); *CANNABINOID, URINE NEGATIVE (NEGATIVE); *COCCAINE, URINE NEGATIVE (NEGATIVE); *OPIATE, URINE NEGATIVE (NEGATIVE); *PHENCYCLIDINE SCREEN,URINE NEGATIVE (NEGATIVE)
--- NOTE | 2020-10-04 03:42 | NUR ---
SPOKED WITH FRENCH MASTER AT [facility] ,SHE WILL BE COMING WITH IN AN HOUR.: CAROLYN SAID PATIENT IS MEDICALLY CLEAR .
--- NOTE | 2020-10-04 04:28 | NUR ---
ESCORTED PATIENT TO THE BATHROOM STEADY OF GAIT VOIDED FREELY . BACK TO BED . PATIENT ASKED FOR ICE WATER PROVIDED AT [facility] ,PATIENT ABLE TO DRINK WATER .
--- NOTE | 2020-10-04 04:43 | NUR ---
FRENCH TALENT REP AT [facility] SPEAKING WITH PATIENT .
[2020-10-04] MEDS ORDERED: OLAN15TA3 PO (04:49)
[2020-10-04] MEDS ORDERED: DIAZ5TAB PO (04:49)
--- NOTE | 2020-10-04 05:30 | NUR ---
REPORT NAINA HERMAN USING THE SBAR .PATIENT GOING TO ROOM 140A.
--- NOTE | 2020-10-04 05:56 | NUR ---
ESCORTED TO THE BATHROOM ,AMBULATED STEADY OF GIAT ,PATIENT VOIDED .BACK TO BED .
[2020-10-04] MEDS ORDERED: MAGNESIUM HYDROXIDE 30 ML LIQUID UDC PO PRN (06:00)
[2020-10-04] MEDS ORDERED: MAG HYDROX/AL HYDROX/SIMETH 30 ML LIQUID UDC PO PRN (06:00)
[2020-10-04] MEDS ORDERED: DIAZEPAM 5 MG TABLET PO PRN (06:30)
[2020-10-04] MEDS ORDERED: DIAZEPAM 5 MG TABLET ONE (06:32)
[2020-10-04 06:37] VITALS: BP 163/95
--- NOTE | 2020-10-04 06:41 | NUR ---
MOVED PATIENT VIA GURNEY AND WENT WITH CHART AND PATIENT BELONGINGS .
--- NOTE | 2020-10-04 07:01 | NUR ---
ADMITTED A 55Y/O FEMALE ON 5150 HOLD @0600.DR BAEZ IS THE PSYCHIATRIST AND DR. SOLIS IS THE CROSS COUNTRY AND TRACK AND FIELD COACH.PER HOLD SHE STATED SHE WANTED TO HARM HERSELF AND USE LIGHTERS TO BURN DOWN HER HOUSE. CIGARETTE HUBER WERE ALSO FOUND ON CARPET.UPON FACE TO FACE ASSESSMENT SHE ADMITTED TO BEING SUICIDAL AND WANTED TO KILL HERSELF EXCEPT SHE IS ALSO AFRAID OF .SHE SUDDENLY STARTED CRYING AND SUDDENLY STOPPED AND SAID 'WHATEVER".WILL ENDORSE TO NEXT SHIFT TO CONTINUE WITH ADMISSIONS.
[2020-10-04 08:07] VITALS: BP 132/87
[2020-10-04] MEDS: LORAZEPAM 1 MG TABLET PO PRN ×3 (08:19→22:13)
[2020-10-04 16:31] VITALS: BP 103/67
[2020-10-04 20:00] VITALS: BP 116/81
[2020-10-04] MEDS: DIVALPROEX 250 MG TABLET.DR PO SCH (21:22)
[2020-10-04] MEDS: MIRTAZAPINE 15 MG TABLET PO SCH (21:22)
[2020-10-04] MEDS: risperiDONE 1 MG TABLET PO SCH (21:22)
[2020-10-05] MEDS: TEMAZEPAM 7.5 MG CAPSULE PO PRN ×2 (00:14→23:52)
[2020-10-05] MEDS: LORAZEPAM 1 MG TABLET PO PRN ×3 (03:44→16:25)
[2020-10-05] MEDS: ACETAMINOPHEN 325 MG TABLET PO PRN (03:44)
--- NOTE | 2020-10-05 06:05 | NUR ---
Received patient pacing in the blackwell. Hyperverbal and emotionally labile. Crying every other sentence. Patient was anxious about being discharged to her home, where she lives alone. This account underwriter was an active listener . Multiple times during the shift, this patient had requests for medications and food. Total sleep hours were 4.00. Patients energy is high and speech is tangential. Education provided to the patient regarding new medications that were started. No SI at this time ans safety strategies are in place.
[2020-10-05 07:54] VITALS: BP 102/58
[2020-10-05] MEDS: risperiDONE 1 MG TABLET PO SCH ×2 (09:09→21:27)
[2020-10-05] MEDS: DIVALPROEX 250 MG TABLET.DR PO SCH ×3 (09:09→16:25)
[2020-10-05 16:57] VITALS: BP 100/71
[2020-10-05 20:04] VITALS: BP 116/74
[2020-10-05] MEDS: MIRTAZAPINE 15 MG TABLET PO SCH (21:27)
[2020-10-06 07:30] VITALS: BP 98/62
[2020-10-06] MEDS: DIVALPROEX 250 MG TABLET.DR PO SCH ×3 (08:40→16:43)
[2020-10-06] MEDS: risperiDONE 1 MG TABLET PO SCH ×2 (08:40→20:29)
--- NOTE | 2020-10-06 08:57 | NUR ---
Firearms Report: A R Specialist completed and submitted a [employer] firearms report for 5150 grave disability certifications. A copy of report has been placed in patient chart.
[2020-10-06] MEDS: LORAZEPAM 1 MG TABLET PO PRN ×3 (11:45→16:53)
--- NOTE | 2020-10-06 13:12 | NUR ---
KEYANNA Initial Discharge Plan: Patient resides at [place] [id number] [place] [address] [place] [address] by herself. Patient has 2 brothers Todd Costa ([phone]) and Rangel Costa ([phone]). Patient would like to return home upon discharge. KEYANNA will continue to work with patient, family, and MD to ensure a safe and proper discharge plan.
--- NOTE | 2020-10-06 13:15 | NUR ---
Brief Substance Abuse Intervention: Patient was provided with a brief substance abuse intervention for alcohol and cigarette abuse and referred to the following substance abuse programs: [facility] Substance Abuse Self-helpline ([phone]); [facility] [address] [place] [address] ([phone]); [address] [address] ([phone]); [facility] ([phone]); [facility] ([phone]); [facility] ([phone]); [facility] ([phone]).
--- NOTE | 2020-10-06 14:00 | NUR ---
KEYANNA Coordination of Care: KEYANNA faxed patient's referral packet to Tino at [facility] to help with inpatient or outpatient rehab for drugs or alcohol for the patient (P: [phone] F: [phone]).
--- NOTE | 2020-10-06 14:13 | NUR ---
UR NOTE: Per GG intake: Auth# [id number] 3 days approved with review due on the 2020 s/w Rangel Burch after hours [employer]. with Ajay BRYAN @ [phone] Called [facility] [phone] & faxed to [phone] for [employer]/HCP also. SW will follow up.
--- NOTE | 2020-10-06 14:13 | NUR ---
KEYANNA Family Contact: Per patient's request, SW contacted patient's brother Todd Costa ([phone]) and discussed treatment and discharge plan.
--- NOTE | 2020-10-06 14:36 | NUR ---
KEYANNA Coordination of Care: KEYANNA received a voicemail from the patient's current outpatient psychiatrist Dr. Micheline Parr [address] [facility] [address], [place] [address] ([phone]) stating that she will "not see the patient upon discharge from the hospital unless the patient goes to an inpatient alcohol abuse program". KEYANNA contacted Dr. Parr back however unable to reach at this time and left a voicemail for a return call.
[2020-10-06 15:17] VITALS: BP 111/71
[2020-10-06 20:25] VITALS: BP 115/80
[2020-10-06] MEDS: MIRTAZAPINE 15 MG TABLET PO SCH (20:29)
[2020-10-06] MEDS: ACETAMINOPHEN 325 MG TABLET PO PRN (22:10)
[2020-10-06] MEDS: TEMAZEPAM 7.5 MG CAPSULE PO PRN (22:10)
[2020-10-07] MEDS: HYDROXYZINE PAMOATE 25 MG CAPSULE PO PRN ×2 (00:29→23:53)
--- NOTE | 2020-10-07 00:30 | NUR ---
GPS: Pt.is anxious,tearful,noted with crying spells and continues to complain of insomnia. Sleeping pill administered earlier was ineffective,per pt. Re-assured and re-directed. Quiet environment provided to facilitate sleep. Vistaril 25mg PO given for anxiety. Will monitor effectiveness.
[2020-10-07 07:30] VITALS: BP 102/69
[2020-10-07] MEDS: risperiDONE 1 MG TABLET PO SCH ×2 (08:18→20:11)
[2020-10-07] MEDS: DIVALPROEX 250 MG TABLET.DR PO SCH ×3 (08:18→16:28)
[2020-10-07] MEDS: ACETAMINOPHEN 325 MG TABLET PO PRN (10:50)
--- NOTE | 2020-10-07 10:50 | NUR ---
KEYANNA Individual Note: SW met with patient for individual counseling and discussed patient's presenting suicidal ideation. Patient expressed that she is feeling depressed and wants a psychologist for when she goes home. SW provided patient with a list of in-network psychologists thought her insurance. Patient was thankful. Patient expressed active suicidal thoughts with no plan or intent at this moment. SW helped safety plan with the patient.
--- NOTE | 2020-10-07 11:02 | NUR ---
KEYANNA Coordination of Care: KEYANNA received a voicemail again from the patient's current outpatient psychiatrist Dr. Micheline Parr [address] [facility] [address], [place] [address] ([phone]) reiterating that she will not see the patient upon discharge from the hospital unless the patient goes to an inpatient alcohol abuse program. SW attempted to contact Dr. Parr again however unable to reach at this time and left a voicemail for a return call back.
--- NOTE | 2020-10-07 11:43 | NUR ---
UR NOTE: Auth# [id number] KEYANNA contacted assigned bottle caser Martine Early ([phone] x. [phone]) for clinical review due today 10/07/20. KEYANNA left a voicemail requesting a call back to conduct clinical review or fax. Addendum: 10/07/20 at 1304 by LISA PARSON KEYANNA conducted a live clinical review and patient is authorized until 10/09/20 with review due on 10/10/20.
[2020-10-07 15:46] VITALS: BP 96/62
--- NOTE | 2020-10-07 15:59 | NUR ---
Psychiatrist Note: Patient's outpatient psychiatrist hand delivered a letter on 10/07/20 to the treating doctor Elizabeth stating that patient is inpatient at [facility] and is in need of an inpatient rehab for alcohol abuse and other drug use and if discharged she is at risk for suicide and has proven an ongoing danger to herself and should not return home. If pt is not placed at a facility then doctor Param Parr will not see pt. She is the legal responsibility of the hospital and is unstable and unable to maintain herself without self harm by misusing alcohol in combination with severe mental illness as proven this is her second hospitalization. This SW placed this note in patient's chart.
[2020-10-07 20:10] VITALS: BP 111/81
[2020-10-07] MEDS: MIRTAZAPINE 15 MG TABLET PO SCH (20:11)
[2020-10-07] MEDS: TEMAZEPAM 7.5 MG CAPSULE PO PRN (22:51)
[2020-10-08 07:30] VITALS: BP 107/77
[2020-10-08] MEDS: HYDROXYZINE PAMOATE 25 MG CAPSULE PO PRN (07:51)
[2020-10-08] MEDS: ACETAMINOPHEN 325 MG TABLET PO PRN ×2 (07:51→18:01)
[2020-10-08] MEDS: risperiDONE 1 MG TABLET PO SCH (08:49)
[2020-10-08] MEDS: DIVALPROEX 250 MG TABLET.DR PO SCH ×3 (08:49→17:48)
--- NOTE | 2020-10-08 10:47 | NUR ---
KEYANNA Individual Note: SW met with patient for individual counseling and discussed patient's presenting suicidal ideation. Patient expressed that she is feelings agitated and anxious. Patient states that she need more time and medication adjustments. Patient demonstrates more insight and appears more cooperative with treatment and in discussion with social media campaign manager.
[2020-10-08 16:00] VITALS: BP 104/77
--- NOTE | 2020-10-08 19:06 | NUR ---
left pat. in bed AAOx4. vitals stable no c/of pain no aggressive behavior noted. will continue with care.
[2020-10-08 20:17] VITALS: BP 119/80
[2020-10-08] MEDS: risperiDONE 2 MG TABLET PO SCH (20:30)
[2020-10-08] MEDS: MIRTAZAPINE 15 MG TABLET PO SCH (20:30)
[2020-10-09] MEDS: TEMAZEPAM 7.5 MG CAPSULE PO PRN ×2 (00:15→21:49)
[2020-10-09 07:23] LABS: HEMATOCRIT 41.1 % (31.2-41.9); MEAN CORPUSCULAR HEMOGLOBIN 32.5 uug (24.7-32.8); MEAN CORPUSCULAR VOLUME 95.8 fL (75.5-95.3); PLATELET COUNT (AUTO) 243 K/uL (179-408)
[2020-10-09 07:30] VITALS: BP 103/71
[2020-10-09 08:09] LABS: BILIRUBIN,TOTAL 0.4 mg/dL (0.2-1.0); CREATININE 0.8 mg/dL (0.6-1.3); POTASSIUM 4.4 mmol/L (3.5-5.1); TOTAL PROTEIN, SERUM 6.3 g/dL (6.4-8.2)
[2020-10-09] MEDS: DIVALPROEX 250 MG TABLET.DR PO SCH ×3 (08:09→17:27)
[2020-10-09] MEDS: risperiDONE 1 MG TABLET PO SCH (08:10)
--- NOTE | 2020-10-09 09:35 | NUR ---
Received pt AAOX4 ambulatory able to verbalized needs and concerns. pt remains with episodes of anxiety this morning getting frustrated after not been able to use facility and been able to wash her hands as stated at the nurses station. Patient reasured that help to fix utility issues is on the way pt. able to verbalized understanding. Contracts for safety. Will
--- NOTE | 2020-10-09 13:21 | NUR ---
UR NOTE/Coordination of Care: Auth# [id number] SW contacted assigned trimming caser Martine Early ([phone] x. [phone]) and requested to outpatient or inpatient substance abuse rehabilitation program for the patient. Martine stated she will request it and will get back to this SW with potential facilities with availability for the patient.
--- NOTE | 2020-10-09 13:28 | NUR ---
KEYANNA Family Contact: KEYANNA spoke with patient's brother Todd Costa ([phone]) and discussed treatment and discharge plan. Per Dr. Johnson's request, KEYANNA asked Todd if there is a chance of patient living with them or family coming out to be with the patient at home. Todd stated that they cannot accommodate this right now. Todd stated patient's other brother, Rangel is unable to as well. Todd requested inpatient rehab center for substance abuse and this SW informed that the request has been made through the patient's insurance and is waiting for some updates. Todd stated he can continue to provide emotional support and checking in on the patient via telephone but cannot come out here for some time.
[2020-10-09] MEDS: ACETAMINOPHEN 325 MG TABLET PO PRN ×2 (15:05→23:03)
--- NOTE | 2020-10-09 15:58 | NUR ---
KEYANNA Coordination of Care: SW faxed patient's referral packet to [facility] (fax: [phone]) Omid Gr and [facility] (fax: [phone]) attention to Tino.
[2020-10-09 16:00] VITALS: BP 125/80
[2020-10-09] MEDS: HYDROXYZINE PAMOATE 25 MG CAPSULE PO PRN (19:57)
[2020-10-09 20:00] VITALS: BP 122/78
[2020-10-09] MEDS ORDERED: DIVALPROEX 500 MG TABLET.DR PO SCH (21:00)
[2020-10-09] MEDS: risperiDONE 2 MG TABLET PO SCH (21:06)
[2020-10-10] MEDS: HYDROXYZINE PAMOATE 25 MG CAPSULE PO PRN (02:27)
--- NOTE | 2020-10-10 06:33 | NUR ---
Patient awake most of the night.Despite restoril and vistoril were given .Noted ineffective. Patient is anxious but able to redirect patient .Re-assurance given and Provided quite calm environment.PAtient resting in bed comfortably at this time.will endorse to oncoming shift.
[2020-10-10 07:27] LABS: THYROID STIMULATING HORMONE 1.584 mIU/mL (0.358-3.740)
[2020-10-10 07:54] VITALS: BP 102/63
[2020-10-10] MEDS: risperiDONE 1 MG TABLET PO SCH (08:16)
[2020-10-10] MEDS: DIVALPROEX 250 MG TABLET.DR PO SCH (08:16)
--- NOTE | 2020-10-10 08:40 | NUR ---
KEYANNA Coordination of Care: KEYANNA spoke with Omid Gr ([phone]) from [facility] regarding patient potential for inpatient substance abuse rehab or outpatient IOP. Ed stated that they have a long history with this patient of not showing up to her appointments. Ed stated that they believe she is not a good fit for their substance abuse inpatient program as she needs a more psych focused program. Ed stated they have made 4 appointment for her in the past and she has not shown up to either of them. Ed stated they can no longer accommodate patient in their treatment centers.
--- NOTE | 2020-10-10 10:14 | NUR ---
UR NOTE: Auth# [id number] KEYANNA contacted assigned protective services case worker Martine Nneka ([phone] x. [phone]) for clinical review due today 10/10/20. KEYANNA left a voicemail with clinical review including patient's current behaviors and mental health status, updated medications changes. Addendum: 10/10/20 at 1041 by LISA PARSON Martine called this KEYANNA back with continued authorization through the weekend until 10/13/20.
--- NOTE | 2020-10-10 11:26 | NUR ---
KEYANNA Coordination of Care: KEYANNA sent patient's clinicals for review to [facility] attention to Danny (P: [phone]) for possible inpatient rehab treatment.
[2020-10-10] MEDS: busPIRone 5 MG TABLET PO SCH ×2 (12:36→16:25)
[2020-10-10] MEDS: OXCARBAZEPINE 150 MG TABLET PO SCH ×2 (12:36→16:25)
[2020-10-10 16:41] VITALS: BP 102/62
[2020-10-10] MEDS: ACETAMINOPHEN 325 MG TABLET PO PRN (17:19)
[2020-10-10] MEDS: TRAZODONE 50 MG TABLET PO SCH (20:03)
[2020-10-10] MEDS: risperiDONE 2 MG TABLET PO SCH (20:03)
[2020-10-10 20:17] VITALS: BP 120/63
[2020-10-10] MEDS: TEMAZEPAM 7.5 MG CAPSULE PO PRN (22:03)
[2020-10-11] MEDS: LORAZEPAM 0.5 MG TABLET PO PRN (05:08)
--- NOTE | 2020-10-11 05:19 | NUR ---
At the start of the shift , this patient was very anxious and irritable, along with emotionally labile and paranoid. The patient was making statements such as " There are satanic voices in my head and I feel like I am on fire". After that ,the patient burst into a crying episode. The writer technical publications actively listened for a time, encouraged the patient to use coping stratiges and provided distraction and reassurance. This patient appeared exhausted. Multiple times during the shift the patient would come to the nurses station and ask for things. Emergency Medical Service Manager noticed that the patient was able to sleep some. Plan to monitor patient for safety, obtain a UA as ordered and do frequent rounding. Patient denies SI at this time.
[2020-10-11 07:18] LABS: *BILIRUBIN,URIN NEGATIVE (NEGATIVE); *CLARITY,URINE CLEAR (CLEAR); *COLOR,URINE YELLOW (YELLOW); *KETONES,URINE NEGATIVE (NEGATIVE); *UROBILINOGEN,URINE 0.2 E.U./dl (NORMAL); LEUKOCYTE ESTERASE ,URINE TRACE (NEGATIVE); NITRITE, URINE NEGATIVE (NEGATIVE); UGLUCOSE NEGATIVE (NEGATIVE)
[2020-10-11 07:24] LABS: *BLOOD, URINE TRACE (NEGATIVE)
[2020-10-11 07:35] VITALS: BP 112/76
[2020-10-11] MEDS: OXCARBAZEPINE 150 MG TABLET PO SCH ×3 (08:09→16:46)
[2020-10-11] MEDS: risperiDONE 1 MG TABLET PO SCH (08:09)
[2020-10-11] MEDS: busPIRone 5 MG TABLET PO SCH ×3 (08:09→16:46)
[2020-10-11 16:44] VITALS: BP 124/84
[2020-10-11 19:16] LABS: BACTERIA,URINE FEW /HPF (NONE SEEN); SQUAMOUS EPITHELIAL CELL,UR FEW /HPF (NONE SEEN)
[2020-10-11 20:00] VITALS: BP 99/69
[2020-10-11] MEDS: TRAZODONE 50 MG TABLET PO SCH (20:35)
[2020-10-11] MEDS: risperiDONE 2 MG TABLET PO SCH (20:35)
[2020-10-12 07:30] VITALS: BP 101/59
[2020-10-12] MEDS: busPIRone 5 MG TABLET PO SCH ×3 (08:02→16:35)
[2020-10-12] MEDS: risperiDONE 1 MG TABLET PO SCH (08:02)
[2020-10-12] MEDS: OXCARBAZEPINE 150 MG TABLET PO SCH ×3 (08:02→16:35)
[2020-10-12 16:00] VITALS: BP 103/66
[2020-10-12 20:02] VITALS: BP 104/74
[2020-10-12] MEDS: TRAZODONE 50 MG TABLET PO SCH (20:33)
[2020-10-12] MEDS: risperiDONE 2 MG TABLET PO SCH (20:34)
[2020-10-12] MEDS: LORAZEPAM 0.5 MG TABLET PO PRN (20:34)
[2020-10-12] MEDS: TEMAZEPAM 7.5 MG CAPSULE PO PRN (21:56)
--- NOTE | 2020-10-13 00:01 | NUR ---
GPS MEDICATION ADMINISTRATION CLARIFICATION : All medications given to this patient on 10/12/20 from 1900 till now were given by this play writer.
[2020-10-13 07:30] VITALS: BP 90/48
[2020-10-13] MEDS: risperiDONE 1 MG TABLET PO SCH ×2 (08:41→16:19)
[2020-10-13] MEDS: busPIRone 5 MG TABLET PO SCH ×3 (08:41→16:20)
[2020-10-13] MEDS: OXCARBAZEPINE 150 MG TABLET PO SCH (08:41)
--- NOTE | 2020-10-13 09:29 | NUR ---
KEYANNA Coordination of Care: KEYANNA spoke with Danny from [facility] (P: [phone]) for possible inpatient rehab treatment. Danny stated they can accept the patient's insurance and is requesting additional clinicals. KEYANNA sent clincials for review. Addendum: 10/13/20 at 1251 by LISA PARSON Danny contacted this social media content manager after reviewing the patient' clinicals and stated that they cannot accept her in their program due to the patient's mental health diagnosis and stated they are not able to accommodate.
--- NOTE | 2020-10-13 09:29 | NUR ---
UR NOTE: Auth# [id number] KEYANNA contacted assigned case hardener Martine Nneka ([phone] x. [phone]) for clinical review due today 10/13/20. KEYANNA left a voicemail with clinical review including patient's current behaviors and mental health status, updated medications changes. Addendum: 10/13/20 at 0946 by LISA PARSON Martine contacted this Collection Support Specialist back and stated patient is authorized for continued stay from 10/13/20 - 10/15/20 with clinical review due on 10/16/20.
[2020-10-13] MEDS: OXCARBAZEPINE 300 MG TABLET PO SCH ×2 (12:22→16:19)
[2020-10-13] MEDS ORDERED: OXCARBAZEPINE 150 MG TABLET PO SCH (13:00)
[2020-10-13] MEDS: ACETAMINOPHEN 325 MG TABLET PO PRN (15:05)
[2020-10-13 15:11] VITALS: BP 90/55
[2020-10-13] MEDS: LORAZEPAM 0.5 MG TABLET PO PRN (16:20)
[2020-10-13 20:06] VITALS: BP 106/73
[2020-10-13] MEDS: TRAZODONE 50 MG TABLET PO SCH (20:29)
[2020-10-13] MEDS: risperiDONE 2 MG TABLET PO SCH (20:30)
[2020-10-13] MEDS: TEMAZEPAM 7.5 MG CAPSULE PO PRN (21:03)
[2020-10-14] MEDS: ACETAMINOPHEN 325 MG TABLET PO PRN ×2 (06:33→15:17)
[2020-10-14 07:30] VITALS: BP 105/61
[2020-10-14] MEDS: busPIRone 5 MG TABLET PO SCH ×3 (08:30→17:05)
[2020-10-14] MEDS: risperiDONE 1 MG TABLET PO SCH ×2 (08:30→17:05)
[2020-10-14] MEDS: OXCARBAZEPINE 300 MG TABLET PO SCH ×3 (08:30→17:05)
[2020-10-14] MEDS: LORAZEPAM 0.5 MG TABLET PO PRN (10:32)
[2020-10-14] MEDS ORDERED: HYDROCODONE/APAP 5-325MG TABLET PO PRN (11:00)
--- NOTE | 2020-10-14 13:15 | NUR ---
KEYANNA Individual Note: SW met with patient for individual counseling and discussed patient's discharge planning. Patient constantly requesting to meet with KEYANNA to discuss discharge plan. SW informing patient daily of discharge plan and updated regarding rehab facility for substance abuse. KEYANNA explained that she is getting denied from numerous facilities however KEYANNA is still working on finding her one. Patient presents to be understanding.
--- NOTE | 2020-10-14 13:22 | NUR ---
KEYANNA Coordination of Care: KEYANNA spoke with Yogesh ([phone]) and Mario at [facility] [place] for drugs and alcohol treatment along with mental health. SW faxed them patient's referral packet and they are reviewing to consider if patient will be a good for for their program. KEYANNA Zuñiga stated he will follow up with an update once the referral has been reviewed.
[2020-10-14 16:01] VITALS: BP 124/87
[2020-10-14] MEDS: TRAZODONE 50 MG TABLET PO SCH (20:02)
[2020-10-14] MEDS: risperiDONE 2 MG TABLET PO SCH (20:03)
[2020-10-14 20:18] VITALS: BP 121/77
--- NOTE | 2020-10-14 22:30 | NUR ---
Received patient in her room, patient is med compliant, interacts with staff and peers. Patient is aware of her care. Semi fair insight and semi fair judgment. Patient will remain in a psych facility for further evaluation and treatment.
[2020-10-15 07:54] VITALS: BP 107/53
[2020-10-15] MEDS: LORAZEPAM 0.5 MG TABLET PO PRN (08:37)
[2020-10-15] MEDS: OXCARBAZEPINE 300 MG TABLET PO SCH ×3 (08:37→18:33)
[2020-10-15] MEDS: risperiDONE 1 MG TABLET PO SCH ×2 (08:37→18:33)
[2020-10-15] MEDS: busPIRone 5 MG TABLET PO SCH ×3 (08:40→18:33)
--- NOTE | 2020-10-15 11:00 | NUR ---
KEYANNA Coordination of Care: KEYANNA spoke with Yogesh ([phone]) at [facility] [place] for drugs and alcohol treatment along with mental health in regards to the patient's referral. Yogesh stated that he is still waiting for their clinical director's approval and will contact this SW hopefully today.
--- NOTE | 2020-10-15 12:54 | NUR ---
KEYANNA Coordination of Care: KEYANNA spoke with Yogesh ([phone]) at [facility] who stated that the patient got denied and they cannot accept her in their program due to her mental status.
--- NOTE | 2020-10-15 12:55 | NUR ---
KEYANNA Family Contact: KEYANNA received a call from the patient's brother Todd Costa ([phone]) inquiring about the treatment programs. KEYANNA called Todd back and left a voicemail with an update about the patient's denial from treatment programs.
--- NOTE | 2020-10-15 13:01 | NUR ---
KEYANNA Individual Note: SW met with patient for individual counseling and discussed patient's discharge planning. SW informed patient that she did not get accepted to any inpatient rehab programs and patient was understanding of this. KEYANNA explained that we will focus on finding her an outpatient psychiatrist. Patient is agreeable with this.
--- NOTE | 2020-10-15 14:50 | NUR ---
Pt is being discharged to [facility]. Pt is aware and willing to go. VS are stable, no distress. Report was given to NAINA Padilla. All belongings returned. Addendum: 10/15/20 at 1611 by LUCY DIETRICH RN Disregard the above note
[2020-10-15 15:43] VITALS: BP 105/44
--- NOTE | 2020-10-15 16:11 | NUR ---
KEYANNA Coordination of Care: KEYANNA printed a list of [facility] accepting psychiatrists and contacted over half of them which were either not accepting new patients, not an outpatient psychiatrist clinic, or not able to accept this patient. KEYANNA was able to get an appointment for the patient with only one physician on the list, AVANI Saenz and scheduled an appointment on October 24, 2020 at 9:20am via Telemedicine([phone]) [address] [place] [address]. KEYANNA provided the patient a copy of the list of psychiatrist for future needs. KEYANNA also printed patient a list of [facility] accepting psychologists per her request and provided patient with a copy.
--- NOTE | 2020-10-15 20:00 | NUR ---
RECEIVED PATIENT IN HER ROOM SITTING IN HER BED. SHE IS NOTED A/O X 3, UPON INTERVIEW PATIENT NOTED CRYING. SHE STATED, "I CAN'T REMEMBER THINGS. I HAVE A BAD MEMORY AND I FORGET EVERYTHING AND THAT MAKES ME SAD". PATIENT WAS REASSURED AND REDIRECTED. SHE WAS ASKED TO USED COPING SKILLS (GUIDED MEDITATION, DEEP BREATHING EXERCISES, READ A BOOK) PATIENT DENIED SI/HI/VH/A/H. SHE IS ABLE TO VERBALLY CFS. SHE WAS REASSURED FOR HER SAFETY. V/S STABLE, SHE WAS GIVEN PO FLUIDS AND SNACKS. SAFETY AND FALL PRECAUTION IN PLACE. WILL CONTINUE TO MONITOR.
[2020-10-15] MEDS: risperiDONE 2 MG TABLET PO SCH (20:42)
[2020-10-15] MEDS: TRAZODONE 50 MG TABLET PO SCH (20:42)
[2020-10-15 21:13] VITALS: BP 113/74
[2020-10-15] MEDS: TEMAZEPAM 7.5 MG CAPSULE PO PRN (22:50)
--- NOTE | 2020-10-15 22:51 | NUR ---
patient approached the nursing station and asked for a "sleeping pill". she is noted less anxious. temazepam 7.5 mg PO PRN given. will continue to monitor.
[2020-10-16 07:30] VITALS: BP 108/66
[2020-10-16] MEDS: busPIRone 5 MG TABLET PO SCH ×3 (08:57→16:06)
[2020-10-16] MEDS: risperiDONE 1 MG TABLET PO SCH ×3 (08:57→16:06)
[2020-10-16] MEDS: OXCARBAZEPINE 300 MG TABLET PO SCH ×3 (08:57→16:06)
[2020-10-16] MEDS: ACETAMINOPHEN 325 MG TABLET PO PRN ×2 (09:01→16:54)
--- NOTE | 2020-10-16 14:22 | NUR ---
KEYANNA Family Contact: SW left a voicemail for patient's brother Todd Costa ([phone]) and informed of the patient's upcoming doctor's appointments and possible discharge home this week Tuesday.
[2020-10-16] MEDS: LORAZEPAM 0.5 MG TABLET PO PRN (15:01)
[2020-10-16 16:00] VITALS: BP 120/81
[2020-10-16 20:00] VITALS: BP 126/86
[2020-10-16] MEDS: risperiDONE 2 MG TABLET PO SCH (20:23)
[2020-10-16] MEDS: TRAZODONE 50 MG TABLET PO SCH (20:23)
[2020-10-16] MEDS: TEMAZEPAM 7.5 MG CAPSULE PO PRN (21:32)
[2020-10-17 07:30] VITALS: BP 110/79
[2020-10-17] MEDS: OXCARBAZEPINE 300 MG TABLET PO SCH ×3 (08:03→16:22)
[2020-10-17] MEDS: busPIRone 5 MG TABLET PO SCH ×3 (08:03→16:22)
[2020-10-17] MEDS: risperiDONE 1 MG TABLET PO SCH ×3 (08:03→16:22)
--- NOTE | 2020-10-17 08:42 | NUR ---
UR NOTE: Auth# [id number] KEYANNA received a voicemail from continuous pillowcase cutter Martine Early ([phone] x. [phone]) for clinical review to provide it to Jocelyn who is covering for Martine. KEYANNA left discharge clinicals on Alexis voicemail ([phone] ext. [phone]). Addendum: 10/17/20 at 1101 by LISA PARSON Jocelyn called this social service manager back and confirmed authorization for 2 days until tomorrow.
--- NOTE | 2020-10-17 09:57 | NUR ---
EARLY ENTRY: DISCHARGE NOTE for 10/18/20: Patient [place] be [place] back [place] [address] [place] [address] ([phone]). Patient is provided with Taxi voucher and will be provide taxi transportation back home at 1PM. Patient is alert and oriented x4 and is able to independently take care of herself. Patient is aware and agreeable with discharge plan. Patient denies suicidal or homicidal ideation. Patient denies visual or auditory hallucinations. Patient presents with euthymic mood and congruent affect. Patient will be following up with her primary physician Dr. Elier Dickinson [address] [place] [address] ([phone]) and has an appointment scheduled on October 27, 2020 at 2PM. Patient is referred for outpatient psychiatry with [address] [place] [address] and has an appointment scheduled on October 24, 2020 at 9:20am via Telemedicine ([phone]). Patient was provided with a brief substance abuse intervention and referred to the following substance abuse programs: [facility] Self-helpline ([phone]); [facility] [address] [place] [address] ([phone]); [facility] [address] [facility] [address] ([phone]); [facility] ([phone]); [facility] ([phone]); [facility] ([phone]); [facility] ([phone]).
[2020-10-17 20:17] VITALS: BP 140/95
[2020-10-17] MEDS: LORAZEPAM 0.5 MG TABLET PO PRN (20:28)
[2020-10-17] MEDS: TRAZODONE 50 MG TABLET PO SCH (20:28)
[2020-10-17] MEDS: risperiDONE 2 MG TABLET PO SCH (20:28)
[2020-10-17] MEDS: TEMAZEPAM 7.5 MG CAPSULE PO PRN (22:11)
[2020-10-18] MEDS: OXCARBAZEPINE 300 MG TABLET PO SCH (08:01)
[2020-10-18] MEDS: risperiDONE 1 MG TABLET PO SCH (08:02)
[2020-10-18] MEDS: busPIRone 5 MG TABLET PO SCH (08:02)
[2020-10-18 08:05] VITALS: BP 127/98
--- NOTE | 2020-10-18 12:34 | NUR ---
PT LEFT UNIT TO HOSPITAL LOBBY ACCOMPANIED BY SENIOR COST ACCOUNTANT. PT LEFT IN TAXI CAB WITH ALL NOTED BELONGINGS AND PAPERWORK. DENIES PAIN OR DISCOMFORT. ABLE TO MAKE ALL NEEDS KNOWN. DENIES HOMICIDAL AND SUICIDAL IDEATIONS. IN NO ACUTE DISTRESS.
== END 2020-10-18 12:30 | disposition home or self-care (01) | DRG 885 ==
LOC: ER 00:59 → GPS 05:21
PROVIDERS: ADMIT Psychiatry & Neurology Psychiatry; ATTEND Nurse Practitioner Acute Care
DX: F25.9 Schizoaffective disorder, unspecified (principal); R45.851 Suicidal ideations; M54.12 Radiculopathy, cervical region; F17.210 Nicotine dependence, cigarettes, uncomplicated; F31.9 Bipolar disorder, unspecified; Z91.5 Personal history of self-harm; D75.89 Other specified diseases of blood and blood-forming organs; F10.10 Alcohol abuse, uncomplicated; F13.10 Sedative, hypnotic or anxiolytic abuse, uncomplicated; Z20.822 Contact with and (suspected) exposure to COVID-19; Y90.0 Blood alcohol level of less than 20 mg/100 ml
CPT/HCPCS: 36415; 71045; 80164; 84443; 85025; 87086; 93005; A4663; G0480; J3490; U0003

== ENCOUNTER 2020-12-18 22:03 | Emergency (ER) | payer BC, OTHER ==
[~2020-12-18] VITALS: Ht 170.2 cm; Wt 65.8 kg
--- NOTE | 2020-12-18 22:50 | NUR ---
PT ARRIVED AT THE ER WITH C/O BUMPS ALL OVER BODY, NOTED TO BE ITCHY AND PAINFUL.
--- NOTE | 2020-12-18 23:00 | NUR ---
Dr. Narayan at bedside for MSE.
--- NOTE | 2020-12-18 23:09 | NUR ---
Patient discharged to home in stable condition. Written and verbal after care instructions given. Patient verbalizes understanding of instructions. Stressed follow up or return to ER for worsening s/s. All belongings with patient.
[2020-12-18] MEDS ORDERED: LORAZEPAM 0.5 MG TABLET ONE (23:13)
[2020-12-18] MEDS ORDERED: LORAZEPAM 0.5 MG TABLET PO ONE (23:15)
[2020-12-18 23:20] VITALS: BP 140/90
== END 2020-12-18 23:09 | disposition home or self-care (01) ==
LOC: ER 22:08
DX: F41.9 Anxiety disorder, unspecified (principal); F20.9 Schizophrenia, unspecified; F31.9 Bipolar disorder, unspecified; R03.0 Elevated blood-pressure reading, without diagnosis of hypertension
CPT/HCPCS: A4663

== ENCOUNTER 2020-12-23 22:04 | Emergency (ER) | payer BC ==
[~2020-12-23] VITALS: Ht 170.2 cm; Wt 59.0 kg
[2020-12-23 22:25] LABS: HEMATOCRIT 42.2 % (31.2-41.9); MEAN CORPUSCULAR HEMOGLOBIN 33.4 uug (24.7-32.8); MEAN CORPUSCULAR VOLUME 95.7 fL (75.5-95.3); PLATELET COUNT (AUTO) 220 K/uL (179-408)
[2020-12-23 22:32] LABS: CARBON DIOXIDE 26 mmol/L (21-32); CHLORIDE 101 mmol/L (98-107); CREATININE 0.8 mg/dL (0.6-1.3); GLUCOSE 97 mg/dL (74-106); POTASSIUM 3.8 mmol/L (3.5-5.1); UREA NITROGEN, BLOOD 10 mg/dL (7-18)
[2020-12-23 22:41] LABS: ETHANOL < 3 MG/DL (0-0)
[2020-12-23 22:44] LABS: ALANINE AMINOTRANSFERASE 18 U/L (14-59); ALKALINE PHOSPHATASE 103 U/L (50-136); ASPARTATE AMINOTRANSFERASE 14 U/L (15-37); BILIRUBIN,DIRECT 0.1 mg/dL (0.0-0.2); BILIRUBIN,TOTAL 0.3 mg/dL (0.2-1.0); TOTAL PROTEIN, SERUM 6.8 g/dL (6.4-8.2)
[2020-12-23 22:46] LABS: ACETAMINOPHEN < 2.0 ug/mL (10-30)
[2020-12-23 22:47] LABS: *BILIRUBIN,URIN NEGATIVE (NEGATIVE); *CLARITY,URINE CLEAR (CLEAR); *COLOR,URINE YELLOW (YELLOW); *KETONES,URINE 1+ (NEGATIVE); *UROBILINOGEN,URINE 0.2 E.U./dl (NORMAL); LEUKOCYTE ESTERASE ,URINE 1+ (NEGATIVE); NITRITE, URINE NEGATIVE (NEGATIVE); UGLUCOSE NEGATIVE (NEGATIVE)
[2020-12-23 22:49] LABS: *BLOOD, URINE TRACE (NEGATIVE)
[2020-12-23 22:58] LABS: BACTERIA,URINE MODERATE /HPF (NONE SEEN); SQUAMOUS EPITHELIAL CELL,UR MODERATE /HPF (NONE SEEN)
[2020-12-23 23:05] LABS: *AMPHETAMINE, URINE NEGATIVE (NEGATIVE); *CANNABINOID, URINE NEGATIVE (NEGATIVE); *COCCAINE, URINE NEGATIVE (NEGATIVE); *OPIATE, URINE NEGATIVE (NEGATIVE); *PHENCYCLIDINE SCREEN,URINE NEGATIVE (NEGATIVE)
[2020-12-23] MEDS ORDERED: BUSP5TAB3 PO (23:26)
[2020-12-23] MEDS ORDERED: OXCA300T4 PO (23:26)
[2020-12-23] MEDS ORDERED: TRAZ-257 PO (23:26)
[2020-12-23] MEDS ORDERED: trintellix PO (23:26)
[2020-12-23] MEDS ORDERED: ARIP30TA3 PO (23:26)
[2020-12-23] MEDS ORDERED: RISP3TAB61 PO (23:26)
[2020-12-23] MEDS ORDERED: PALI9TAB4 PO (23:26)
[2020-12-24] MEDS ORDERED: SULFAMETH/TRIMETH 800/160 MG TABLET PO ONE (00:15)
[2020-12-24] MEDS ORDERED: SULFAMETH/TRIMETH 800/160 MG TABLET ONE (00:51)
[2020-12-24] MEDS ORDERED: CYANOCOBALAMIN 1000 MCG/ML VIAL IM ONE (02:00)
--- NOTE | 2020-12-24 02:13 | NUR ---
Called Bita from Crisis team to come evaluate pt.
[2020-12-24] MEDS ORDERED: CYANOCOBALAMIN 1000 MCG/ML VIAL ONE (02:37)
--- NOTE | 2020-12-24 03:14 | NUR ---
Bita from crisis team here to eval patient.
[2020-12-24] MEDS ORDERED: OLANZAPINE 10 MG VIAL IM ONE ×2 (03:45→03:48)
[2020-12-24] MEDS ORDERED: LORAZEPAM 0.5 MG TABLET PO ONE (03:45)
[2020-12-24] MEDS ORDERED: LORAZEPAM 1 MG TABLET ONE (03:48)
--- NOTE | 2020-12-24 03:54 | NUR ---
Pt resting comfortably, dozing off to sleep. Good color and appearance, AAOx4, cooperative and pleasant demeanor.
--- NOTE | 2020-12-24 04:20 | NUR ---
Spoke to Crisis team rep Sunshine regarding her findings for pt. She confirmed that pt has brief episodes of psychosis and needs to be placed on 5150 hold due to danger to self. Pt cannot be admitted to [facility] here at [place] due to insurance reasons however Bita did contact three different facilities to see if one can possibly accept the pt for the hold. Still pending word on which facility pt will be transfered to. Bita said that she is hoping to find out some time by noon which facility the pt will be sent to. All this information was told to pt who acknowledged understanding that she is waiting for placement in a psych facility for a hold, which means she will be here in the ED til we find a facility willing to take her and she is picking machine operator helper by medical transport. Thermostat in room raised to 78 degrees to make more comfortable for pt. lights turned off and pt given pillow. Pt fell asleep shortly there after.
--- NOTE | 2020-12-24 04:30 | NUR ---
Pt given extra blanket upon request. one cup of oj, one cup of apple sauce, one cup of chocolate pudding provided to patient. Pt ate everything 100%. resting comfortably.
--- NOTE | 2020-12-24 06:02 | NUR ---
Pt sleeping soundly with audible snoring.
--- NOTE | 2020-12-24 12:10 | NUR ---
[facility] called: Polly stated they will accept pt. to [place] unit under Dr. Reaves, [phone]. Number for report [phone]. Want us to arrange transport. [facility] [address] [place] [address] [facility] -- ETA: [phone] hours
--- NOTE | 2020-12-24 13:23 | NUR ---
Called report to NAINA Prado at [facility]
== END 2020-12-24 14:20 ==
LOC: ER 22:05
DX: R45.851 Suicidal ideations (principal); F29 Unspecified psychosis not due to a substance or known physiological condition; E53.8 Deficiency of other specified B group vitamins; Z91.5 Personal history of self-harm; F25.0 Schizoaffective disorder, bipolar type; F17.200 Nicotine dependence, unspecified, uncomplicated; Z79.899 Other long term (current) drug therapy; F10.20 Alcohol dependence, uncomplicated; Y90.0 Blood alcohol level of less than 20 mg/100 ml; Z91.14 Patient's other noncompliance with medication regimen; Z20.822 Contact with and (suspected) exposure to COVID-19
CPT/HCPCS: 36415; 80048; 80076; 80299; 80307; 80320; 81001; 82607; 85025; 87086; 87426; 96372 ×2; 99285; J3420; A4663; G0480; J2358

== ENCOUNTER 2021-06-23 09:38 | Inpatient (IN) | payer MEDICARE, BC ==
[~2021-06-23] VITALS: Ht 170.2 cm; Wt 81.6 kg
[~2021-06-23 09:38] MED LIST changes: +ARIP30TA3 PO; +BUSP5TAB3 PO; -OMEP20CA15 PO; +OXCA300T4 PO; +PALI9TAB4 PO; +RISP3TAB61 PO; +TRAZ-257 PO; +trintellix PO
[2021-06-23] MEDS ORDERED: LORAZEPAM 2 MG/1 ML VIAL IM ONE (09:45)
[2021-06-23] MEDS ORDERED: HALOPERIDOL LACTATE 5 MG/1 ML VIAL IM ONE ×2 (09:45→10:00)
[2021-06-23] MEDS ORDERED: diphenhydrAMINE 50 MG/1 ML VIAL IM ONE (09:45)
[2021-06-23] MEDS ORDERED: diphenhydrAMINE 50 MG/1 ML VIAL ONE (09:53)
[2021-06-23 10:02] LABS: HEMATOCRIT 46.2 % (31.2-41.9); MEAN CORPUSCULAR HEMOGLOBIN 34.4 uug (24.7-32.8); MEAN CORPUSCULAR VOLUME 99.8 fL (75.5-95.3); PLATELET COUNT (AUTO) 195 K/uL (179-408)
[2021-06-23] MEDS ORDERED: LITHIUM (10:03)
[2021-06-23] MEDS ORDERED: HALDOL (10:03)
[2021-06-23] MEDS ORDERED: COGENTIN (10:03)
[2021-06-23] MEDS ORDERED: WELLBUTRIN (10:03)
[2021-06-23 10:04] LABS: CARBON DIOXIDE 23 mmol/L (21-32); CHLORIDE 103 mmol/L (98-107); CREATININE 1.3 mg/dL (0.6-1.3); GLUCOSE 108 mg/dL (74-106); POTASSIUM 4.2 mmol/L (3.5-5.1); UREA NITROGEN, BLOOD 18 mg/dL (7-18)
--- NOTE | 2021-06-23 10:04 | NUR ---
PT KNOWS NAMES OF MEDS SHE IS CURRENTLY ON, BUT IS UNABLE TO STATE DOSE AND FREQUENCY TAKEN.
[2021-06-23 10:10] LABS: ACETAMINOPHEN < 2.0 ug/mL (10-30); ALANINE AMINOTRANSFERASE 50 U/L (14-59); ALKALINE PHOSPHATASE 97 U/L (50-136); ASPARTATE AMINOTRANSFERASE 23 U/L (15-37); BILIRUBIN,DIRECT 0.2 mg/dL (0.0-0.2); BILIRUBIN,TOTAL 0.6 mg/dL (0.2-1.0); TOTAL PROTEIN, SERUM 6.7 g/dL (6.4-8.2)
[2021-06-23 10:12] LABS: ETHANOL < 3 MG/DL (0-0)
[2021-06-23] MEDS ORDERED: HALOPERIDOL LACTATE 5 MG/1 ML VIAL ONE (10:12)
--- NOTE | 2021-06-23 10:18 | NUR ---
ANOTHER EPISODE OF LOUD EMOTIONAL OUTBURST, RAN OUT OF ROOM AND LAID HERSELF ON FLOOR VERBALIZING DELUSIONAL "GOD WILL PUNISH ME, I AM GOING TO TODAY, KICKING RESTLESSLY, SECURITY X 2 WITH RNS IN ATTENDANCE. SECURED PT TO MD FARTUN AT BEDSIDE FOR EVAL; 1:1 SITTER WITH SECURITY
--- NOTE | 2021-06-23 10:28 | NUR ---
late entry:" pt came out of room, shouting with paranoid comments that "they are here to get me". pt laid on the fllor in the nursing station area, shouting, incomprehensible, pt histrionic, calledc conor quarles at 1009. security was able to put the pt in bed uneventful, transfered the bed to room 3, cleared the room. at 1014, assissted security to place restraint.
[2021-06-23] MEDS ORDERED: OLANZAPINE 10 MG VIAL IM ONE ×2 (10:45→10:51)
--- NOTE | 2021-06-23 11:00 | NUR ---
removed all the restraints, pt walked to bathroom with steady gait.
[2021-06-23 11:18] LABS: *BILIRUBIN,URIN NEGATIVE (NEGATIVE); *CLARITY,URINE CLEAR (CLEAR); *COLOR,URINE YELLOW (YELLOW); *KETONES,URINE NEGATIVE (NEGATIVE); *UROBILINOGEN,URINE 0.2 E.U./dl (NORMAL); LEUKOCYTE ESTERASE ,URINE 1+ (NEGATIVE); NITRITE, URINE NEGATIVE (NEGATIVE); PH,URINE 6.5 (5.0-8.0); UGLUCOSE NEGATIVE (NEGATIVE)
[2021-06-23 11:20] LABS: *BLOOD, URINE TRACE (NEGATIVE)
[2021-06-23 11:28] LABS: *AMPHETAMINE, URINE NEGATIVE (NEGATIVE); *CANNABINOID, URINE NEGATIVE (NEGATIVE); *COCCAINE, URINE NEGATIVE (NEGATIVE); *OPIATE, URINE NEGATIVE (NEGATIVE); *PHENCYCLIDINE SCREEN,URINE NEGATIVE (NEGATIVE)
--- NOTE | 2021-06-23 11:53 | NUR ---
PT IN BED, SEEMS COMFORTABLE, COMFORT MEASURES PROVIDED.
--- NOTE | 2021-06-23 12:14 | NUR ---
LUNCH TRAY PROVIDED FOR PT.
--- NOTE | 2021-06-23 14:04 | NUR ---
PT TRANSFERED TO [facility] IN STABLE CONDITION. PT COOPERATIVE AT THIS TIME.
[2021-06-23] MEDS ORDERED: MAG HYDROX/AL HYDROX/SIMETH 30 ML LIQUID UDC PO PRN (14:30)
[2021-06-23] MEDS ORDERED: MAGNESIUM HYDROXIDE 30 ML LIQUID UDC PO PRN (14:30)
[2021-06-23 14:34] LABS: BACTERIA,URINE NONE SEEN /HPF (NONE SEEN); RBC,URINE 0-3 /HPF (0-3); SQUAMOUS EPITHELIAL CELL,UR FEW /HPF (NONE SEEN)
[2021-06-23 14:48] VITALS: BP 99/76
[2021-06-23] MEDS: LORAZEPAM 1 MG TABLET PO PRN ×2 (15:31→20:26)
--- NOTE | 2021-06-23 18:33 | NUR ---
Admitted 55 year old female , brought to the ED on a 5150 for DTS. Per hold, the patient lives at home. She walks in and out of her room and with episodes of being fixated on the phone numbers in her cellphone and wanting to call her PENSION ADMINISTRATOR. She signed all the GPS consents and noted with understanding. Dr Albright made aware, orders carried out. Upon assessment, the patient starts yelling, screaming "I wish to " but denies hurting herself. The patient agreed to contact the brother for any concern. Patient skin is intact. Oriented the patient on the safety rules in the unit and the plan of care, she was noted with understanding. Safety measures maintained during the shift. No other concerns identified at this time. family came to see her. Will endorse to the next shift for continuity of care.
--- NOTE | 2021-06-23 18:57 | NUR ---
The patient remained stable. Denies SI at the end of the shift. Ativan PRN given during the shift. Frequent visual checks done. no distress identified all needs attended. safety measures maintained. will endorse to the next shift for continuity of care.
[2021-06-23 20:00] VITALS: BP 103/72
[2021-06-23] MEDS: ZOLPIDEM 5 MG TABLET PO PRN (21:27)
--- NOTE | 2021-06-24 06:40 | NUR ---
Patient was restless last night and given Ativan 1mg po and effective. Slept 7.15 hours. Needs attended to and met.
[2021-06-24 07:30] VITALS: BP 113/75
[2021-06-24 09:07] LABS: BILIRUBIN,TOTAL 0.4 mg/dL (0.2-1.0); CREATININE 1.1 mg/dL (0.6-1.3); POTASSIUM 4.2 mmol/L (3.5-5.1)
[2021-06-24] MEDS: LORAZEPAM 1 MG TABLET PO PRN (09:14)
[2021-06-24] MEDS ORDERED: diphenhydrAMINE 50 MG/1 ML VIAL IM ONE (12:00)
[2021-06-24] MEDS ORDERED: LORAZEPAM 2 MG/1 ML VIAL IM ONE (12:00)
[2021-06-24] MEDS ORDERED: HALOPERIDOL LACTATE 5 MG/1 ML VIAL IM ONE (12:00)
--- NOTE | 2021-06-24 12:00 | NUR ---
Dr Albright called for patient being agitated, screaming, very disruptive to stop and yelling with no avail. Called Dr Guzman to report behavior and ordered Benadryl 50mg, Ativan 2mg, and Haldol 5mg IM carried out. Will continue to monitor.
--- NOTE | 2021-06-24 12:21 | NUR ---
KEYANNA Initial Discharge Note: Pt is admitted to [facility] on a 5250 hold for danger to herself and grave disability adult. Pt was brought from home. Pt reported she wants to discharge home upon discharge though she is open to a temporary nursing facility if needed. Pt stated her brother, Todd ([phone]) is involved and in contact with her. KEYANNA will continue to work with pt, family christy LEROY to ensure a safe and proper discharge plan.
--- NOTE | 2021-06-24 12:21 | NUR ---
SW Admit Source: Pt is admitted to [facility] on a 5250 hold for danger to herself and grave disability adult. Pt was brought from home. Pt reported she wants to discharge home upon discharge though she is open to a temporary nursing facility if needed. Pt stated her brother, Todd ([phone]) is involved and in contact with her. SW will continue to work with pt, family adrj LEROY to ensure a safe and proper discharge plan.
--- NOTE | 2021-06-24 12:30 | NUR ---
IM meds given as ordered. safety measure maintained. will continue to monitor.
[2021-06-24 16:00] VITALS: BP 95/64
--- NOTE | 2021-06-24 19:00 | NUR ---
Patient remained quiet after the IM PRN medication. no episodes of screaming/yelling. Denies SI. Denies pain. frequent visual checks done. VS WNL. no acute distress identified. will endorse for continuity of care.
[2021-06-24 20:00] VITALS: BP 116/76
[2021-06-24] MEDS: HALOPERIDOL 5 MG TABLET PO SCH (22:47)
[2021-06-24] MEDS: DIVALPROEX 250 MG TABLET.DR PO SCH (22:47)
[2021-06-24] MEDS: ZOLPIDEM 5 MG TABLET PO PRN (22:48)
--- NOTE | 2021-06-25 06:47 | NUR ---
The patient remained stable during the shift. Slept 5.0hrs. Compliant with meds. Denies SI. Denies pain. Frequent visual checks done. no distress identified during the shift. all needs attended. safety measures maintained. will endorse to the next shift for continuity of care.
[2021-06-25 07:30] VITALS: BP 111/74
[2021-06-25] MEDS: LORAZEPAM 1 MG TABLET PO PRN (08:41)
[2021-06-25] MEDS: BENZTROPINE MESYLATE 1 MG TABLET PO SCH ×3 (10:18→17:35)
[2021-06-25] MEDS: DIVALPROEX 250 MG TABLET.DR PO SCH ×3 (10:18→17:00)
[2021-06-25] MEDS: HALOPERIDOL 5 MG TABLET PO SCH ×3 (10:18→17:35)
--- NOTE | 2021-06-25 10:56 | NUR ---
PT NOTED ANXIOUS WITH SCREAMING AND YELLING EPISODE IN HER ROOM. GIVEN ATIVAN PO AND TOLERATED WELL. ABLE TO BE REDIRECTED. PT ATTENTION SEEKER, NEEDY. PT SEEN GOING TO ACTIVITY ROOM WATCHING TV AND SOMETIMES HAVING CONVERSATION WITH OTHER PT. PT COMPLIANT WITH MEDICATIONS AND CARE. NO AGITATION AT THIS TIME.
--- NOTE | 2021-06-25 11:47 | NUR ---
KEYANNA Family Contact: KEYANNA contacted pt's brother Todd ([phone]) and was not able to leave a voicemail. KEYANNA also contacted pt's other brother, Rangel ([phone]) and left a voicemail for a call back regarding discharge plan.
--- NOTE | 2021-06-25 12:20 | NUR ---
Firearms Report: Umbrella Repairer completed and submitted a [employer] firearms report for 5150 for a danger to herself and grave disability certifications. A copy of report has been placed in patient chart.
[2021-06-25 16:00] VITALS: BP 132/89
--- NOTE | 2021-06-25 18:32 | NUR ---
PT REFUSED TAKING THE DEPAKOTE. PER PT, SHE DON'T WANT TO TAKE IT AND BE CHANGE TO LITHIUM INSTEAD.
[2021-06-25 20:00] VITALS: BP 116/72
[2021-06-25] MEDS: ACETAMINOPHEN 325 MG TABLET PO PRN (21:40)
[2021-06-25] MEDS: ZOLPIDEM 5 MG TABLET PO PRN (21:40)
--- NOTE | 2021-06-25 22:36 | NUR ---
PATIENT RECEIVED PACING THE HALLWAY. PATIENT IS NEEDY AND DEMANDING. PATIENT IS EASILY IRRITABLE AND UNPREDICTABLE. PATIENT RECEIVED TYLENOL DUE TO A HEADACHE 4/10 AND SLEEPING AID. NOTED ANXIOUS WITH SCREAMING AND YELLING EPISODE IN HER ROOM. GIVEN ATIVAN PO AND TOLERATED WELL. ABLE TO BE REDIRECTED. PT ATTENTION SEEKER, ELIZABETHY. PT SEEN GOING TO ACTIVITY ROOM WATCHING TV AND SOMETIMES HAVING CONVERSATION WITH OTHER PT. PT COMPLIANT WITH MEDICATIONS AND CARE. NO AGITATION AT THIS TIME. Addendum: 06/25/21 at 2243 by DELICIA FAJARDO RN PATIENT RECEIVED PACING THE HALLWAY. PATIENT IS NEEDY AND DEMANDING. PATIENT IS EASILY IRRITABLE AND UNPREDICTABLE. PATIENT RECEIVED TYLENOL DUE TO A HEADACHE 4/10 AND SLEEPING AID, AMBIEN 5 MG. SAFETY MEASURES RENDERED. BED IN LOWEST POSITION AND BED LOCKED.
[2021-06-26] MEDS: LORAZEPAM 1 MG TABLET PO PRN ×3 (03:41→14:17)
[2021-06-26 07:30] VITALS: BP 123/72
[2021-06-26] MEDS: ACETAMINOPHEN 325 MG TABLET PO PRN ×2 (07:56→13:16)
[2021-06-26] MEDS: BENZTROPINE MESYLATE 1 MG TABLET PO SCH ×3 (08:00→16:54)
[2021-06-26] MEDS: HALOPERIDOL 5 MG TABLET PO SCH ×3 (08:00→16:54)
[2021-06-26] MEDS: DIVALPROEX 250 MG TABLET.DR PO SCH ×3 (08:00→12:34)
--- NOTE | 2021-06-26 10:05 | NUR ---
Alert, oriented x 4 pacing in the hallway at start of shift, anxious, crying, asking for medications and advocate. Redirected. Refused to take Depakote, saying she's taking Lithuim" Asked for changed of clothes and walked to nurse's station, yelling, sat on floor and refused to get out. Redirected and agreed to take Ativan po.
--- NOTE | 2021-06-26 13:21 | NUR ---
Paul, participated with group activity. Complained of headache, Tylenol po given
--- NOTE | 2021-06-26 15:47 | NUR ---
Discharge Update: Pt's daughters, foster care mother, Diane ([phone]) contacted SW and discussed pt's current status. KEYANNA notified Diane of patient's probable cause hearing on Tuesday, the 2021. KEYANNA stated the time is not decided. Diane stated they will not be joining the hearing. Diane stated she may be available to provide transportation home upon discharge however she stated she can confirm upon discharge. Diane stated pt contacts her several times a day crying on the phone and she believes she needs further care. Diane was appreciative and agreeable with the current care. Diane confirmed that pt's 2 children are under Diane's care.
[2021-06-26] MEDS: LITHIUM CARBONATE 300 MG CAPSULE PO SCH (17:03)
[2021-06-26 17:05] VITALS: BP 102/67
[2021-06-26 20:12] VITALS: BP 105/71
[2021-06-26] MEDS: ZOLPIDEM 5 MG TABLET PO PRN (22:33)
[2021-06-27] MEDS: LORAZEPAM 1 MG TABLET PO PRN ×4 (02:56→18:26)
--- NOTE | 2021-06-27 04:38 | NUR ---
received patient in the day room at the start of the shift, patient A&0x4. pleasant upon initial interaction. Able to verbalize needs. @2030 patient verbalized being scared and want to talk to doctor, re-assure patient to be in the safe environment and this curriculum writer will attempt to contact the doctor. @2100 doctor came in, relay patient comment earlier about being "scared", no new order from the doctor. Patient sleeping at this hour.@ 0030 patient is awake and stays in the day room to watch tv, patient is quiet, non-destructive behavior noted. @0300 patient requested Ativan for anxiety. @0330 patient goes back to her room and sleeps. Patient needsmet and attended to.
--- NOTE | 2021-06-27 07:30 | NUR ---
Received patient walking around the unit. No design of distress noted. Pt mood is labile. safety precautions are in place. Will continue to monitor.l
[2021-06-27 08:03] VITALS: BP 114/77
[2021-06-27] MEDS: HALOPERIDOL 5 MG TABLET PO SCH ×3 (09:18→16:57)
[2021-06-27] MEDS: LITHIUM CARBONATE 300 MG CAPSULE PO SCH ×3 (09:18→16:57)
[2021-06-27] MEDS: BENZTROPINE MESYLATE 1 MG TABLET PO SCH ×3 (09:18→16:56)
[2021-06-27 16:18] VITALS: BP 139/92
--- NOTE | 2021-06-27 18:15 | NUR ---
Patient came to nursing station stating that she has two black eyes that happened in the ER and that she is demanding a video of the events that happened. Pt also states that she is having chunks of hair loss. When she tried to show the amount of hair loss by dragging her hand continuously through her hair not evidence of hairl oss was noted. Pt seems to be having delusions and visual hallucination as no black eyes was noted and no hair loss. Pt proceeded to scream and yell profanity and throw a tantrum. She later left and started screaming and banging on side table in her room. Will continue to monitor.
[2021-06-27 20:00] VITALS: BP 118/76
[2021-06-27] MEDS ORDERED: CLONAZEPAM 0.5 MG TABLET PO SCH (22:30)
[2021-06-27] MEDS ORDERED: chlorproMAZINE 25 MG TABLET PO SCH (22:30)
[2021-06-27] MEDS ORDERED: chlorproMAZINE 50 MG/2 ML AMPUL IM PRN (22:30)
[2021-06-28] MEDS: LORAZEPAM 1 MG TABLET PO PRN ×4 (05:22→20:42)
--- NOTE | 2021-06-28 05:22 | NUR ---
Patient came to nursing station stating yelling at staff.screaming loud. ativan 1mg po given for agitation. tylenol 650 mg po given for headache at 06.07 am. [id number] still pacing in the hallway. needy and vebally abusive to staff. self care. slept 8 hrs through the night.
[2021-06-28] MEDS: ACETAMINOPHEN 325 MG TABLET PO PRN ×3 (06:07→14:28)
[2021-06-28 07:43] VITALS: BP 114/79
[2021-06-28] MEDS: BENZTROPINE MESYLATE 1 MG TABLET PO SCH ×3 (09:22→17:29)
[2021-06-28] MEDS: LITHIUM CARBONATE 300 MG CAPSULE PO SCH ×3 (11:27→17:26)
[2021-06-28] MEDS: HALOPERIDOL 5 MG TABLET PO SCH ×3 (11:27→17:26)
--- NOTE | 2021-06-28 16:10 | NUR ---
PRN ativan given every 6 hours as requested. Pt has episodes of crying spells in room stating that she wants to and that "they" are surrounding her. I reoriented patient, she stopped crying and calmed down. educated to take deep breaths. Pt is now calm in room. Takes medications as directed. Will continue to monitor.
[2021-06-28 16:35] VITALS: BP 122/81
[2021-06-28 20:08] VITALS: BP 110/67
[2021-06-29] MEDS: ZOLPIDEM 5 MG TABLET PO PRN (00:35)
[2021-06-29] MEDS: ACETAMINOPHEN 325 MG TABLET PO PRN (00:37)
[2021-06-29] MEDS: LORAZEPAM 1 MG TABLET PO PRN ×3 (07:29→22:02)
[2021-06-29 07:47] VITALS: BP 116/88
[2021-06-29] MEDS: BENZTROPINE MESYLATE 1 MG TABLET PO SCH ×3 (09:33→17:31)
[2021-06-29] MEDS: HALOPERIDOL 5 MG TABLET PO SCH ×4 (09:33→21:07)
[2021-06-29] MEDS: LITHIUM CARBONATE 300 MG CAPSULE PO SCH ×3 (09:33→20:39)
--- NOTE | 2021-06-29 09:40 | NUR ---
KEYANNA Substance Use Intervention Note: Pt refused substance use intervention upon SW's request. Pt had previously reported in her assessment that she takes pills and stated, "I just want to ." Pt as of today is denying that statement and reported to SW she does not need to complete an assessment because she does not have a substance use problem. KEYANNA placed a copy of pt's refusal of the substance use intervention in pt's chart.
[2021-06-29 16:19] VITALS: BP 103/69
--- NOTE | 2021-06-29 16:26 | NUR ---
Received patient sleeping in her room. A/O X 3 to person, place, situation. Pt. is dramatic, attention seeker, screams loud. Ativan 1 mg given at 07:30 and 13:00, for anxiety, effective. Self care. Emotional support given. Fall and safety precautions implemented.
[2021-06-29 20:00] VITALS: BP 121/80
[2021-06-29] MEDS ORDERED: HALOPERIDOL 0.5 MG TABLET PO SCH (21:00)
[2021-06-30] MEDS: LORAZEPAM 1 MG TABLET PO PRN ×3 (02:34→13:55)
--- NOTE | 2021-06-30 05:29 | NUR ---
received patient in day room, interacting with other patient. Patient compliant with medications. @2200 patient is heard yelling and crying in her room, patient states "I'm tired of this psychiatric mambo jumbo", re-assure patient and provide emotional support, patient then request for Ativan 1mg. Sat with patient and actively listens to verbalizing feelings. Patient calmer and appears comforted. @0130 Patient was heard screaming again and crying, patient states "they are following me". nurses assures patient to be in the safe environment, safety strategies left in place, fiction and nonfiction prose writer stays. Ativan given @0230, @0300 patient is sleeping in her room.
[2021-06-30 08:00] VITALS: BP 117/72
[2021-06-30] MEDS: LITHIUM CARBONATE 300 MG CAPSULE PO SCH ×3 (08:21→20:25)
[2021-06-30] MEDS: CLONAZEPAM 0.5 MG TABLET PO SCH ×3 (08:21→17:00)
[2021-06-30] MEDS: BENZTROPINE MESYLATE 1 MG TABLET PO SCH ×3 (08:22→16:54)
[2021-06-30] MEDS: HALOPERIDOL 5 MG TABLET PO SCH ×3 (08:22→20:22)
[2021-06-30] MEDS ORDERED: HALOPERIDOL 1 MG TABLET PO SCH (09:00)
--- NOTE | 2021-06-30 14:57 | NUR ---
received patient is paranoid and delusional constantly calling patient's right saying she was raped by someone, crying and yelling in the activity room for no reason .Ativan given as PRN ordered.encouraged patient to communicate with staffs and will continue close monitoring.
[2021-06-30 16:00] VITALS: BP 107/78
[2021-06-30 20:00] VITALS: BP 111/69
[2021-06-30] MEDS: ZOLPIDEM 5 MG TABLET PO PRN (20:38)
[2021-07-01] MEDS: ACETAMINOPHEN 325 MG TABLET PO PRN ×2 (05:51→19:29)
[2021-07-01] MEDS: LORAZEPAM 1 MG TABLET PO PRN ×2 (06:12→10:10)
[2021-07-01 07:32] VITALS: BP 118/86
[2021-07-01] MEDS: BENZTROPINE MESYLATE 1 MG TABLET PO SCH ×3 (08:26→16:56)
[2021-07-01] MEDS: CLONAZEPAM 0.5 MG TABLET PO SCH ×3 (08:27→16:56)
[2021-07-01] MEDS: LITHIUM CARBONATE 300 MG CAPSULE PO SCH ×3 (08:27→20:35)
[2021-07-01] MEDS: HALOPERIDOL 5 MG TABLET PO SCH ×2 (08:27→16:56)
--- NOTE | 2021-07-01 09:20 | NUR ---
Alert, oriented x 3, anxious, asking about hearing. Compliant with taking of medications
[2021-07-01 16:00] VITALS: BP 109/60
--- NOTE | 2021-07-01 17:00 | NUR ---
Crying to Dr. Albright, concerned about side effect of medications. Printed copy provided of medications with indication and side effects. Responds to redirection
[2021-07-01 20:08] VITALS: BP 118/86
[2021-07-01] MEDS: ZOLPIDEM 5 MG TABLET PO PRN (20:36)
--- NOTE | 2021-07-02 05:43 | NUR ---
Patient calm most of the night with no episode of random emotional outburst noted. remains compliant with medications. patient well rested as she sleeps most of the night.
[2021-07-02] MEDS: LORAZEPAM 1 MG TABLET PO PRN ×2 (06:30→13:52)
--- NOTE | 2021-07-02 06:36 | NUR ---
patient wakes up and approach the station requesting for the doctor to see her. Patient then requested Ativan as she "don't feel good", ativan given, patient went back to her room. Patient came back 5 minutes later to the station, crying, yelling and screaming stating "they experimented on me, what happened to my lashes" presented reality and re-assure patient. Patient went back to her room and continues to yell and screams, let patient vent out feelings, stay with patient for safety. will continue to monitor
[2021-07-02 08:00] VITALS: BP 113/82
[2021-07-02] MEDS: LITHIUM CARBONATE 300 MG CAPSULE PO SCH ×2 (08:43→21:16)
[2021-07-02] MEDS: BENZTROPINE MESYLATE 1 MG TABLET PO SCH ×3 (08:43→17:19)
[2021-07-02] MEDS: HALOPERIDOL 5 MG TABLET PO SCH ×3 (08:43→17:19)
[2021-07-02] MEDS: CLONAZEPAM 0.5 MG TABLET PO SCH ×3 (08:43→17:19)
--- NOTE | 2021-07-02 10:24 | NUR ---
GPS: RECEIVED PT AWAKE AND IN HER ROOM FEELS WITHDRAWN. SEEN PT ALONG THE HALLWAY ASKING WHEN IS THE RING ROLLING MACHINE OPERATOR COMING AND SHE LIKS TO SPEAK WITH HIM. PT SEEN IN THE BATHROOM SCREAMING AND STATING "I DONT KNOW WHY THEY'RE EXPERIMENTING ON ME". PT LOOKING FOR PSYCHIATRIST AND ASKING FOR ATIVAN. RE-DIRECTED PT AND EXPLAINED THAT SHE JUST GOT ATIVAN AND NEED TO WAIT FOR FEW HOURS. PT WENT TO TV ROOM QUIET AND DEPRESSED. PT COMPLIANT WITH CARE AND MEDS. WILL MONITOR.
--- NOTE | 2021-07-02 13:54 | NUR ---
GPS: PT SCREAMING AND YELLING AT THE TV ROOM, ALONE. ATIVAN GIVEN AND TOLERATED WELL. PT REDIRECTED AND SOMEWHAT ABLE TO UNDERSTAND BUT STILL WITH OUTBURST OF SCREAMING.
[2021-07-02] MEDS: ACETAMINOPHEN 325 MG TABLET PO PRN (15:55)
[2021-07-02 16:00] VITALS: BP 109/86
[2021-07-02 20:00] VITALS: BP 97/67
[2021-07-02] MEDS: TRAZODONE 50 MG TABLET PO SCH (21:16)
[2021-07-02] MEDS: ZOLPIDEM 5 MG TABLET PO PRN (22:49)
[2021-07-03] MEDS: LORAZEPAM 1 MG TABLET PO PRN ×2 (00:29→07:35)
--- NOTE | 2021-07-03 04:34 | NUR ---
Received to care, lying in bed, exhibiting calm and appropriate behavior. Denied any psychotic symptoms. Remained isolative in her room. Compliant with medications. Was slightly restless at bedtime. PRN Ambien was given at 2249, but still remained unable to sleep. PRN Ativan was given at 0029, and she went to sleep, and has slept well most of night. No distress noted.
[2021-07-03 07:30] VITALS: BP 118/80
[2021-07-03] MEDS: HALOPERIDOL 5 MG TABLET PO SCH ×3 (08:54→16:54)
[2021-07-03] MEDS: LITHIUM CARBONATE 300 MG CAPSULE PO SCH ×3 (08:54→21:26)
[2021-07-03] MEDS: BENZTROPINE MESYLATE 1 MG TABLET PO SCH ×3 (08:54→16:54)
[2021-07-03] MEDS: CLONAZEPAM 0.5 MG TABLET PO SCH ×3 (08:54→16:54)
--- NOTE | 2021-07-03 09:00 | NUR ---
GPS: PT SEEN ON BED, TALKING OVER THE PHONE. NO AGITATION AT THIS TIME. COMPLIANT WITH MEDS AND CARE. SEEN BY BOX OFFICE AGENT SHE REQUESTED SINCE YESTERDAY. PT FEELS DEPRESSED. PT SPOKE WITH THE SLAB POLISHER AWHILE AGO ABOUT ASKING ABOUT CBD IF IT HELPS WITH HER SITUATION. PT REQUESTED TO CHECK HER CELLPHONE FOR AN EMAIL AND WAS GIVEN PRIVILEGE IN FRONT OF SLAB POLISHER.
[2021-07-03 15:26] VITALS: BP 122/80
[2021-07-03 19:45] VITALS: BP 98/50
[2021-07-03] MEDS: TRAZODONE 50 MG TABLET PO SCH (21:26)
[2021-07-04 07:30] VITALS: BP 107/77
[2021-07-04] MEDS: BENZTROPINE MESYLATE 1 MG TABLET PO SCH ×3 (08:26→16:22)
[2021-07-04] MEDS: CLONAZEPAM 0.5 MG TABLET PO SCH ×3 (08:26→16:22)
[2021-07-04] MEDS: LITHIUM CARBONATE 300 MG CAPSULE PO SCH ×3 (08:26→20:33)
[2021-07-04] MEDS: HALOPERIDOL 5 MG TABLET PO SCH ×3 (08:26→16:22)
[2021-07-04] MEDS: LORAZEPAM 1 MG TABLET PO PRN (09:52)
[2021-07-04 16:00] VITALS: BP 109/77
[2021-07-04 20:00] VITALS: BP 102/69
[2021-07-04] MEDS: TRAZODONE 50 MG TABLET PO SCH (20:32)
[2021-07-05] MEDS: HALOPERIDOL 5 MG TABLET PO SCH ×3 (08:29→16:42)
[2021-07-05] MEDS: LITHIUM CARBONATE 300 MG CAPSULE PO SCH ×3 (08:29→16:42)
[2021-07-05] MEDS: CLONAZEPAM 0.5 MG TABLET PO SCH ×3 (08:29→16:42)
[2021-07-05] MEDS: BENZTROPINE MESYLATE 1 MG TABLET PO SCH ×3 (08:29→16:42)
[2021-07-05 16:03] VITALS: BP 108/71
[2021-07-05 20:00] VITALS: BP 98/63
[2021-07-05] MEDS: TRAZODONE 50 MG TABLET PO SCH (20:00)
[2021-07-05] MEDS: ACETAMINOPHEN 325 MG TABLET PO PRN (20:00)
--- NOTE | 2021-07-06 05:57 | NUR ---
Patient was compliant with her meds. No behavioral issues identified during the shift. No concerns noted. Slept nine hours. Tylenol given prn per request due to bilateral knee pain, medication was effective. Maintained safety measures. Frequent checks done. Denies SI. No acute distress noted. will endorse to the next shift for continuity of care.
--- NOTE | 2021-07-06 06:52 | NUR ---
Patient came to the nurses station asking for the DCFS number, she stated it is the place who took her kids from her. She started crying and stated the family of her wants her . Patient wants to talk to a marriage and family social worker regarding her kids. will endorse to the next shift for follow up.
[2021-07-06 07:40] VITALS: BP 119/75
[2021-07-06] MEDS: CLONAZEPAM 0.5 MG TABLET PO SCH ×3 (08:33→16:35)
[2021-07-06] MEDS: HALOPERIDOL 5 MG TABLET PO SCH ×3 (08:33→16:35)
[2021-07-06] MEDS: LITHIUM CARBONATE 300 MG CAPSULE PO SCH ×3 (08:33→16:35)
[2021-07-06] MEDS: BENZTROPINE MESYLATE 1 MG TABLET PO SCH ×3 (08:33→16:35)
--- NOTE | 2021-07-06 09:04 | NUR ---
Social Work Discharge Update Patient is currently refusing placement in a retirement facility. Patient lives in her own home in [place] at [id number] [place], [place] [id number] and wants to return there once stable. Patient's brothers would prefer that patient is placed but patient refuses this as is not conserved so has a right to choose to return home.
[2021-07-06 17:04] VITALS: BP 144/82
--- NOTE | 2021-07-06 17:45 | NUR ---
PATIENT IS ALERT AND ORIENTED REMAINS PARANOIA AND DELUSIONAL LOOKING FOR HER KIDS, PATIENT CONTINUE WITH DISORGANIZE THOUGHT AND POOR INSIGHT ,DENIES ANY SUICIDAL IDEATION ,COMPLIANT WITH ALL AM MEDICATION . AMBULATING IN THE UNIT SELF CARE.
[2021-07-06 19:56] VITALS: BP 136/76
[2021-07-06] MEDS: ZOLPIDEM 5 MG TABLET PO PRN ×2 (20:45→23:35)
[2021-07-06] MEDS: TRAZODONE 50 MG TABLET PO SCH (20:45)
[2021-07-07 07:30] VITALS: BP 136/79
[2021-07-07] MEDS: CLONAZEPAM 0.5 MG TABLET PO SCH ×3 (08:19→17:19)
[2021-07-07] MEDS: HALOPERIDOL 5 MG TABLET PO SCH ×3 (08:19→17:19)
[2021-07-07] MEDS: BENZTROPINE MESYLATE 1 MG TABLET PO SCH ×3 (08:19→17:19)
[2021-07-07] MEDS: LITHIUM CARBONATE 300 MG CAPSULE PO SCH ×3 (08:19→17:19)
--- NOTE | 2021-07-07 08:49 | NUR ---
GPS: PT APPROACHED NURSES STATION, VERBALIZING FEELINGS. PT REDIRECTED AND WENT TO ACTIVITY ROOM TO WATCH TV WHILE WAITING FOR BREAKFAST. PT ABLE TO TOLERATED WELL THE MEDS. ANO AGITATION NOTED AT THIS TIME. PER NIGHT NURSE REPORT, PT WILL BE DISCHARGE TOMORROW.
[2021-07-07 15:48] VITALS: BP 105/63
[2021-07-07] MEDS: CEphaleXIN 500 MG CAPSULE PO SCH (17:19)
[2021-07-07 20:06] VITALS: BP 116/64
[2021-07-07] MEDS: TRAZODONE 50 MG TABLET PO SCH (20:15)
--- NOTE | 2021-07-07 22:12 | NUR ---
PATIENT RECEIVED IN BED AWAKE. PATIENT IS ALERT/ORIENTED X 3. PATIENT DENIES PAIN AT THIS TIME. PATIENT IN NO APPARENT DISTRESS. PATIENT DENIES SI. PATIENT COMPLAINT WITH MEDICATION. SAFETY MEASURES RENDERED. BED IN LOWEST POSITION, BED LOCKED, AND BED ALARM ON WHILE IN BED. PATIENT IS ABLE TO MAKE NEEDS KNOWN.
[2021-07-08 07:30] VITALS: BP 107/81
[2021-07-08] MEDS: HALOPERIDOL 5 MG TABLET PO SCH ×3 (08:34→16:58)
[2021-07-08] MEDS: BENZTROPINE MESYLATE 1 MG TABLET PO SCH ×3 (08:34→16:59)
[2021-07-08] MEDS: LITHIUM CARBONATE 300 MG CAPSULE PO SCH ×3 (08:34→16:59)
[2021-07-08] MEDS: CLONAZEPAM 0.5 MG TABLET PO SCH ×3 (08:35→16:58)
[2021-07-08] MEDS: CEphaleXIN 500 MG CAPSULE PO SCH ×2 (08:35→16:59)
--- NOTE | 2021-07-08 13:59 | NUR ---
KEYANNA Discharge Note: [place] [address] [place] [address] via Uber transportation at 3PM. KEYANNA spoke with pts brotherTodd ([phone]) on 07/08/21 who is aware and agreeable with the discharge plan. Pts other brother, Rangel ([phone]) was also informed of the pts current status and discharge plan. Pt is aware and agreeable with discharge plans. Pt is alert and oriented x4. Pt refuses a custodial facility and continually states to return to her home. Pt denies any suicidal or homicidal ideation. Pt will follow-up with aftercare appointment at [facility] ([phone]) in the IOP program with psychiatrist, Dr. Reaves. Pt presents with calm mood and congruent affect. PHARMACY: [facility] ([phone]) [address] [place] [address].
--- NOTE | 2021-07-08 14:28 | NUR ---
KEYANNA Substance Use Intervention: Pt refused substance use intervention after multiple attempts to complete it. SW provided resources and will provide additional resources upon discharge. KEYANNA placed a copy of the substance use intervention in the patient's chart.
--- NOTE | 2021-07-08 16:28 | NUR ---
holding patient's discharge today, patient is compliant with all po medication ,denies any SI/HI.no yelling or crying episode .encourage patient to express her feeling and attendance group activity, will continue close monitoring.
[2021-07-08 20:07] VITALS: BP 113/79
[2021-07-08] MEDS: TRAZODONE 50 MG TABLET PO SCH (20:19)
[2021-07-08] MEDS: LORAZEPAM 1 MG TABLET PO PRN (20:20)
[2021-07-09 08:35] VITALS: BP 118/77
[2021-07-09] MEDS: LITHIUM CARBONATE 300 MG CAPSULE PO SCH ×2 (09:00→13:00)
[2021-07-09] MEDS: BENZTROPINE MESYLATE 1 MG TABLET PO SCH ×2 (09:00→13:00)
[2021-07-09] MEDS: HALOPERIDOL 5 MG TABLET PO SCH ×2 (09:00→13:00)
[2021-07-09] MEDS: CLONAZEPAM 0.5 MG TABLET PO SCH ×2 (09:01→13:00)
[2021-07-09] MEDS: CEphaleXIN 500 MG CAPSULE PO SCH (09:01)
--- NOTE | 2021-07-09 10:12 | NUR ---
KEYANNA Discharge Note: Pt will be discharged to [address] [address] [place] [address] via uber transportation at 1PM on 07/09/21. KEYANNA spoke with pts brotherTodd ([phone]) on 07/08/21 who is aware and agreeable with the discharge plan. Pts other brother, Rangel ([phone]) was also informed of the pts current status and discharge plan. Pt is aware and agreeable with discharge plans. Pt is alert and oriented x4. Pt refuses a [facility] facility and continually states to return to her home. Pt denies any suicidal or homicidal ideation. Pt will follow-up with aftercare appointment at [facility] ([phone]) in the IOP program with psychiatrist, Dr. Reaves. Pt presents with calm mood and congruent affect. PHARMACY: [facility] ([phone]) [address] [place] [address].
--- NOTE | 2021-07-09 11:02 | NUR ---
Gps/Academic Department Chair- Discharge planning in progress. Patient's brother S luis called, was able to talked to patient, informed of the discharge plan this pm. Patient looking forward to be going home Patient had been compliant with her routine prescribed medications , denies S.I. no H.I . Attended her group therapy this am. Patient with calmer mood, making her needs known to staff .
--- NOTE | 2021-07-09 11:28 | NUR ---
Gps/Culinary Specialist- Called [facility] ([phone]) prescriptions was called, talked to Pharmacist Kathleen. [phone] ,[place]. [phone]
--- NOTE | 2021-07-09 13:33 | NUR ---
Gps/Drywall Hanger Framer- patient refused routine pm meds. claimed she felt like she's bee drug, "too muck psych meds " per pt. Reviewed medications again, prescriptions, the need to pharmacy picking tech RX at [facility], emphasized f/u with her PMD as well as her support group. All belongings given back to patient, including her black cell phone, and valuables from the safe.
--- NOTE | 2021-07-09 15:02 | NUR ---
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 Reviewed safety
== END 2021-07-09 15:00 | disposition home or self-care (01) | DRG 885 ==
LOC: ER 09:38 → GPS 13:51
PROVIDERS: ADMIT Psychiatry & Neurology Psychiatry; ATTEND Internal Medicine
DX: F31.64 Bipolar disorder, current episode mixed, severe, with psychotic features (principal); N39.0 Urinary tract infection, site not specified; Z91.51 Personal history of suicidal behavior; F41.0 Panic disorder [episodic paroxysmal anxiety]; Z20.822 Contact with and (suspected) exposure to COVID-19
CPT/HCPCS: 36415; 70030-TC; 85025; 87086; 93005; A4663; G0480; J1200; J1630; J2060; J2358; J3490

== ENCOUNTER 2022-08-02 21:16 | Emergency (ER) | payer BC, MEDICARE ==
[~2022-08-02] VITALS: Ht 170.2 cm; Wt 61.2 kg
[2022-08-02] MEDS ORDERED: IV NORMAL SALINE 1000 ML BAG IV ONE (21:30)
--- NOTE | 2022-08-02 21:30 | NUR ---
LAB AT BEDSIDE DRAWING BLOOD.
[2022-08-02 21:40] LABS: HEMATOCRIT 41.1 % (31.2-41.9); MEAN CORPUSCULAR VOLUME 96.6 fL (75.5-95.3); PLATELET COUNT (AUTO) 267 K/uL (179-408)
--- NOTE | 2022-08-02 21:40 | NUR ---
PT BIBA TO RM 3, FOR OVERDOSE.
[2022-08-02 21:50] LABS: CARBON DIOXIDE 25 mmol/L (21-32); CHLORIDE 106 mmol/L (98-107); CREATININE 0.8 mg/dL (0.6-1.3); GLUCOSE 115 mg/dL (74-106); POTASSIUM 3.7 mmol/L (3.5-5.1); UREA NITROGEN, BLOOD 13 mg/dL (7-18)
[2022-08-02] MEDS ORDERED: RISP2TAB85 PO (21:51)
[2022-08-02] MEDS ORDERED: HALO2TAB9 PO (21:51)
[2022-08-02] MEDS ORDERED: LURA20TA PO (21:51)
[2022-08-02] MEDS ORDERED: LURA40TA PO (21:51)
[2022-08-02 21:55] LABS: ALANINE AMINOTRANSFERASE 24 U/L (14-59); ALKALINE PHOSPHATASE 82 U/L (50-136); ASPARTATE AMINOTRANSFERASE 10 U/L (15-37); BILIRUBIN,DIRECT 0.1 mg/dL (0.0-0.2); BILIRUBIN,TOTAL 0.2 mg/dL (0.2-1.0); ETHANOL < 3 MG/DL (0-0); TOTAL PROTEIN, SERUM 6.2 g/dL (6.4-8.2)
[2022-08-02 21:56] LABS: ACETAMINOPHEN < 2.0 ug/mL (10-30)
[2022-08-02 22:19] LABS: MAGNESIUM 2.1 mg/dL (1.8-2.4)
--- NOTE | 2022-08-02 22:25 | NUR ---
[employer] placed patient on a 5150 hold for DTS.
[2022-08-02] MEDS ORDERED: CYANOCOBALAMIN 1000 MCG/ML VIAL IM ONE (22:30)
--- NOTE | 2022-08-02 23:05 | NUR ---
PT UP OOB AMB TO BR . PT VOIDED. URINE COLLECTED / SENT TO LAB.
[2022-08-02] MEDS ORDERED: CYANOCOBALAMIN 1000 MCG/ML VIAL ONE (23:15)
--- NOTE | 2022-08-02 23:30 | NUR ---
PT THANIA PO FLUIDS WITH NO N/V.
[2022-08-02 23:50] LABS: *BILIRUBIN,URIN NEGATIVE (NEGATIVE); *BLOOD, URINE NEGATIVE (NEGATIVE); *CLARITY,URINE CLEAR (CLEAR); *COLOR,URINE YELLOW (YELLOW); *KETONES,URINE NEGATIVE (NEGATIVE); *UROBILINOGEN,URINE 0.2 E.U./dl (NORMAL); LEUKOCYTE ESTERASE ,URINE NEGATIVE (NEGATIVE); NITRITE, URINE NEGATIVE (NEGATIVE); PH,URINE 7.5 (5.0-8.0); UGLUCOSE NEGATIVE (NEGATIVE)
[2022-08-03] LABS: *AMPHETAMINE, URINE NEGATIVE (NEGATIVE); *CANNABINOID, URINE NEGATIVE (NEGATIVE); *COCCAINE, URINE NEGATIVE (NEGATIVE); *PHENCYCLIDINE SCREEN,URINE NEGATIVE (NEGATIVE)
--- NOTE | 2022-08-03 00:30 | NUR ---
PT MEDICALLY CLEARED BY DR Fito COLEMAN.
[2022-08-03] MEDS ORDERED: SYRI-29 MC (00:47)
[2022-08-03] MEDS ORDERED: MECO10006 IM (00:47)
--- NOTE | 2022-08-03 00:57 | NUR ---
ALTA SENIOR MECHANICAL ENGINEER CALLED.
[2022-08-03] MEDS ORDERED: IV NS 1000 ML 1,000 ML IV ONE (01:00)
--- NOTE | 2022-08-03 01:00 | NUR ---
PT UP OOB AMB TO BR WITH STEADY GAIT.
--- NOTE | 2022-08-03 01:55 | NUR ---
GLYNN LAY MIDWIFE AT BEDSIDE FOR EVAL.
--- NOTE | 2022-08-03 04:55 | NUR ---
Jaylin from [facility] will accept patient. Accepting MD is DR Hartman. Call for report is . Patient bed assisgnment is room 201A/
--- NOTE | 2022-08-03 04:58 | NUR ---
Gave SBAR report to Jaylin from [facility].
--- NOTE | 2022-08-03 05:01 | NUR ---
Called [facility] ambulance for transport of patient to [facility]. ETA is 45mins.
--- NOTE | 2022-08-03 06:00 | NUR ---
PT UP OOB AMB TO BR WITH STEADY GAIT. PT VOIDED.
--- NOTE | 2022-08-03 06:45 | NUR ---
REPORT GIVEN TO ALTA MORENO AND RANJAN ,( PARAMEDICS). PT STABLE, VSS WITH NAD OBSERVED. PT'S IV D/C'D, SITE C/D/I.
--- NOTE | 2022-08-03 07:30 | NUR ---
PT'S BROTHERS WERE CALLED, SANDRA AND BRENNAN. THEY WERE GIVEN HER STATUS AND LOCATION PER HER REQUEST.
== END 2022-08-03 06:50 ==
LOC: ER 21:18
DX: T43.4X2A Poisoning by butyrophenone and thiothixene neuroleptics, intentional self-harm, initial encounter (principal); F29 Unspecified psychosis not due to a substance or known physiological condition; E53.8 Deficiency of other specified B group vitamins; F17.210 Nicotine dependence, cigarettes, uncomplicated; Z79.899 Other long term (current) drug therapy; Z20.822 Contact with and (suspected) exposure to COVID-19; Y92.89 Other specified places as the place of occurrence of the external cause
CPT/HCPCS: 36415; 83735; 85025; 93005; A4663; G0480; J3420; J7040

== ENCOUNTER 2022-08-23 12:45 | Emergency (ER) | payer BC, MEDICARE ==
[~2022-08-23] VITALS: Ht 170.2 cm; Wt 61.2 kg
[~2022-08-23 12:45] MED LIST changes: -ARIP30TA3 PO; -BUSP5TAB3 PO; +HALO2TAB9 PO; +LURA20TA PO; +LURA40TA PO; +MECO10006 IM; -OXCA300T4 PO; -PALI9TAB4 PO; +RISP2TAB85 PO; -RISP3TAB61 PO; +SYRI-29 MC; -TRAZ-257 PO; -trintellix PO
--- NOTE | 2022-08-23 12:50 | NUR ---
ROMAN [email or web address] [facility] cloud security architect Christ notified re: this patient may possibly be suicidal per RA 83 verbal report.
--- NOTE | 2022-08-23 13:02 | NUR ---
Blood being drawn by lab staff [email or web address].
[2022-08-23 13:13] LABS: HEMATOCRIT 42.1 % (31.2-41.9); MEAN CORPUSCULAR VOLUME 96.3 fL (75.5-95.3); PLATELET COUNT (AUTO) 318 K/uL (179-408)
--- NOTE | 2022-08-23 13:15 | NUR ---
Nursing SBAR given to primary ER nurse Elva.
--- NOTE | 2022-08-23 13:20 | NUR ---
covid and urine collected and sent to lab
[2022-08-23 13:22] LABS: *BILIRUBIN,URIN NEGATIVE (NEGATIVE); *BLOOD, URINE NEGATIVE (NEGATIVE); *CLARITY,URINE CLEAR (CLEAR); *COLOR,URINE YELLOW (YELLOW); *KETONES,URINE NEGATIVE (NEGATIVE); *UROBILINOGEN,URINE 0.2 E.U./dl (NORMAL); LEUKOCYTE ESTERASE ,URINE NEGATIVE (NEGATIVE); NITRITE, URINE NEGATIVE (NEGATIVE); UGLUCOSE NEGATIVE (NEGATIVE)
[2022-08-23 13:26] LABS: CARBON DIOXIDE 26 mmol/L (21-32); CHLORIDE 95 mmol/L (98-107); CREATININE 0.7 mg/dL (0.6-1.3); GLUCOSE 115 mg/dL (74-106); POTASSIUM 3.7 mmol/L (3.5-5.1); UREA NITROGEN, BLOOD 10 mg/dL (7-18)
[2022-08-23 13:32] LABS: ACETAMINOPHEN < 10.0 ug/mL (10-30); ALANINE AMINOTRANSFERASE 26 U/L (14-59); ALKALINE PHOSPHATASE 115 U/L (50-136); ASPARTATE AMINOTRANSFERASE 7 U/L (15-37); BILIRUBIN,DIRECT 0.1 mg/dL (0.0-0.2); BILIRUBIN,TOTAL 0.3 mg/dL (0.2-1.0)
[2022-08-23 13:32] LABS: *AMPHETAMINE, URINE NEGATIVE (NEGATIVE); *CANNABINOID, URINE NEGATIVE (NEGATIVE); *COCCAINE, URINE NEGATIVE (NEGATIVE); *PHENCYCLIDINE SCREEN,URINE NEGATIVE (NEGATIVE)
--- NOTE | 2022-08-23 14:09 | NUR ---
Patient moved to ER bed 4B from room ER bed 2B per insulation cupola charger Grace and 's order. [facility] assistant director of security Piyush notified as well.
--- NOTE | 2022-08-23 14:31 | NUR ---
Patient is now medically cleared by ER-doctor Dr Wilson.
--- NOTE | 2022-08-23 14:44 | NUR ---
Patient is seen resting on a gurney while talking on her cellphone. Patient is heard cursing angrily and crying loudly. Psych building construction ironworker Unique Watts's [id number].
--- NOTE | 2022-08-23 15:18 | NUR ---
Psych geothermal sheet metal worker Unique Watts is now here in our ER dept and is talking to our ER doctor.
--- NOTE | 2022-08-23 15:34 | NUR ---
Unique Watts is with the patient.
--- NOTE | 2022-08-23 15:42 | NUR ---
Patient discharged to home by Dr Wilson in stable condition with brisk steady gait. Written and verbal after care instructions given to patient. Patient verbalized understanding and compliance of instructions. Stressed follow up with your primary doctor and psychiatrist or return to ER for worsening s/s.
[2022-08-23 15:48] VITALS: BP 133/81
== END 2022-08-23 15:48 | disposition home or self-care (01) ==
LOC: ER 12:45
DX: R45.851 Suicidal ideations (principal); R45.1 Restlessness and agitation; F20.9 Schizophrenia, unspecified; F91.1 Conduct disorder, childhood-onset type; F31.9 Bipolar disorder, unspecified; F17.210 Nicotine dependence, cigarettes, uncomplicated; Z79.899 Other long term (current) drug therapy; Z20.822 Contact with and (suspected) exposure to COVID-19
CPT/HCPCS: 36415; 85025; A4663; G0480